=== PATIENT | female | born 1975 | race Caucasian/White ===

== ENCOUNTER 2016-05-17 16:45 | Emergency (ER) | payer MEDICAID ==
[~2016-05-17] VITALS: Ht 170.2 cm; Wt 111.8 kg
[~2016-05-17 16:45] MED LIST: IBUP800T23 PO; LEVO.1 PO; LISI-585 PO; METF500T PO; OXCA300T PO; XANA1TAB2 PO; ZOFR8TAB4 SL
[2016-05-17 17:26] VITALS: BP 146/85; PULSE 96; RESP 16; TEMP 98.4; O2SAT 97
[2016-05-17] MEDS ORDERED: INSULIN HUMAN REGULAR 1,000 UNITS/10 ML VIAL SQ ONE (18:45)
[2016-05-17] MEDS ORDERED: SODIUM CHLOR 0.9% 1000 ML INJ 1,000 ML IV ONE (18:45)
--- NOTE | 2016-05-17 18:48 | PD ---
HPI Chief Complaint: Diabetic Time Seen by Provider: 18:37 Travel History International Travel<30 days: No Contact w/Intl Traveler<30days: No Traveled to known affect area: No History of Present Illness HPI This 41-year-old female says her sugars been elevated last couple months. She has some tingling in her hands and feet. She has some burning with urination and is concerned she might have a urinary tract infection. She has a history of diabetes. About a year ago she was taken off of insulin put on metformin 500 twice daily. She was well controlled without focal while. She does have a history of hypothyroidism and is on medication. She has seizures which she takes Trileptal. She is not aware of fever or chills. PFSH Past Medical History Arthritis: No Cardiovascular Problems: Yes (htn on meds) High Cholesterol: Yes Diabetes: Yes Patient Takes Glucophage: Yes Diminished Hearing: No Hypertension: Yes Neurologic: Yes (EPILEPSY) Respiratory: Yes (PNEUMONIA , LEGIONAIRES DISEASE) Integumentary: Yes (MRSA 2007) Immunizations Current: Yes Seizures: Yes Thyroid Disease: Yes Influenza Vaccination: No ?: Not LMP: states last month unknown date : 2 Para: 2 Miscarriage: 0 : 0 Ovarian Cysts: Yes Past Surgical History Abdominal Surgery: No Cardiac Surgery: No Ear Surgery: No Endocrine Surgery: No Eye Surgery: No Genitourinary Surgery: No Gynecologic Surgery: No Neurologic Surgery: No Oral Surgery: No Thoracic Surgery: No Other Surgery: Yes Social History Alcohol Use: Yes (OCC) Tobacco Use: No Substance Use: No Allergies-Medications (Allergen,Severity, Reaction): Coded Allergies: Codeine (Verified Allergy, Severe, ITCHING, 05/17/16) Tylenol #3 (Verified Allergy, Mild, ITCHY, 05/17/16) Reported Meds & Prescriptions Reported Meds & Active Scripts Active Reported Oxcarbazepine 300 Mg Tab 600 Mg PO BID Zestoretic (Lisinopril-Hctz) 10-12.5 Mg Tab Unknown Dose PO DAIYL Synthroid (Levothyroxine Sodium) 100 Mcg Tab 100 Mcg PO DAILY Metformin (Metformin HCl) 500 Mg Tab 500 Mg PO BIDPC With meals Xanax (Alprazolam) 1 Mg Tab 1 Mg PO BID PRN Review of Systems General / Constitutional: No: Fever, Chills Eyes: No: Diploplia HENT: No: Headaches, Sore Throat Cardiovascular: No: Chest Pain or Discomfort, Palpitations Respiratory: No: Cough, Shortness of Breath Gastrointestinal: No: Nausea, Vomiting Genitourinary: Positive: Frequency, Dysuria Musculoskeletal: No: Myalgias Skin: No Rash, No Itching Neurologic: Positive: Weakness Endocrine: No: Heat Intolerance Hematologic/Lymphatic: No: Easy Bruising Physical Exam Narrative GENERAL: Well-developed female SKIN: Warm and dry. HEAD: Atraumatic. Normocephalic. EYES: Pupils equal and round. No scleral icterus. No injection or drainage. ENT: No nasal bleeding or discharge. Mucous membranes pink and moist. NECK: Trachea midline. No JVD. CARDIOVASCULAR: Regular rate and rhythm. No murmur appreciated. RESPIRATORY: No accessory muscle use. Clear to auscultation. Breath sounds equal bilaterally. GASTROINTESTINAL: Abdomen soft, non-tender, nondistended. Hepatic and splenic margins not palpable. MUSCULOSKELETAL: No obvious deformities. No clubbing. No cyanosis. No edema. NEUROLOGICAL: Awake and alert. No obvious cranial nerve deficits. Motor grossly within normal limits. Normal speech. PSYCHIATRIC: Appropriate mood and affect; insight and judgment normal Data Data Last Documented VS Vital Signs Date Time Temp Pulse Resp B/P Pulse Ox O2 Delivery O2 Flow Rate FiO2 05/17/16 19:40 74 18 118/85 98 Room Air 05/17/16 17:26 98.4 Orders Complete Blood Count With Diff (05/17/16 18:42) Basic Metabolic Panel (Bmp) (05/17/16 18:42) Urinalysis - C+S If Indicated (05/17/16 18:42) Beta Hydroxybutyrate (Acetone) (05/17/16 18:42) Sodium Chlor 0.9% 1000 Ml Inj (Ns 1000 M (05/17/16 18:45) Insulin Human Regular Inj (Novolin R Inj (05/17/16 18:45) Thyroid Stimulating Hormone (05/17/16 18:44) Urine Culture (05/17/16 19:25) Labs Laboratory Tests Test 05/17/16 19:25 White Blood Count 8.5 TH/MM3 Red Blood Count 4.82 MIL/MM3 Hemoglobin 15.0 GM/DL Hematocrit 44.3 % Mean Corpuscular Volume 91.9 FL Mean Corpuscular Hemoglobin 31.2 PG Mean Corpuscular Hemoglobin 34.0 % Concent Red Cell Distribution Width 11.4 % Platelet Count 238 TH/MM3 Mean Platelet Volume 8.3 FL Neutrophils (%) (Auto) 63.1 % Lymphocytes (%) (Auto) 29.8 % Monocytes (%) (Auto) 5.0 % Eosinophils (%) (Auto) 1.5 % Basophils (%) (Auto) 0.6 % Neutrophils # (Auto) 5.4 TH/MM3 Lymphocytes # (Auto) 2.5 TH/MM3 Monocytes # (Auto) 0.4 TH/MM3 Eosinophils # (Auto) 0.1 TH/MM3 Basophils # (Auto) 0.1 TH/MM3 CBC Comment DIFF FINAL Differential Comment Urine Color STRAW Urine Turbidity CLEAR Urine pH 5.5 Urine Specific [place] 1.026 Urine Protein NEG mg/dL Urine Glucose (UA) 1000 OR GREATER mg/dL Urine Ketones NEG mg/dL Urine Occult Blood TRACE Urine Nitrite NEG Urine Bilirubin NEG Urine Leukocyte Esterase NEG Urine RBC 0-3 /hpf Urine WBC 3-5 /hpf Urine Squamous Epithelial 6-8 /hpf Cells Urine Bacteria MOD /hpf Microscopic Urinalysis Comment CULTURE INDICATED Sodium Level 136 MEQ/L Potassium Level 3.9 MEQ/L Chloride Level 100 MEQ/L Carbon Dioxide Level 25.6 MEQ/L Anion Gap 10 MEQ/L Blood Urea Nitrogen 9 MG/DL Creatinine 0.80 MG/DL Estimat Glomerular Filtration 79 ML/MIN Rate Random Glucose 295 MG/DL Calcium Level 9.3 MG/DL B-Hydroxybutyrate 0.13 MMOL/L [facility] Medical Decision Making Medical Screen Exam Complete: Yes Emergency Medical Condition: Yes Medical Record Reviewed: Yes Differential Diagnosis Differential includes uncontrolled diabetes, hyperglycemia, DKA Narrative Course Blood sugar is elevated at 296. Urine does not show infection. Her ketones are negative. Her Glucophage will be changed to 1000 twice daily Diagnosis Primary Impression: Hyperglycemia Scripts Metformin (Glucophage)1,000 Mg Tab1,000 Mg PO BIDPC #60 TAB Ref 0 With a meal Prov:Pablo Hernandez MD 05/17/16 Disposition: 01 DISCHARGE HOME Condition: Stable Pablo Hernandez MD May 17, 2016 18:48
[2016-05-17 19:40] VITALS: BP 118/85; PULSE 74; RESP 18; O2SAT 98
[2016-05-17 19:44] LABS: AUTOMATED NEUTROPHIL # 5.4 TH/MM3 (1.8-7.7); BASOPHIL # 0.1 TH/MM3 (0-0.2); BASOPHIL % 0.6 % (0.0-2.0); BLOOD, URINE TRACE (NEG); EOSINOPHIL # 0.1 TH/MM3 (0-0.4); EOSINOPHIL % 1.5 % (0.0-4.0); HEMATOCRIT 44.3 % (35.0-46.0); HEMO FLAGS DIFF FINAL; KETONE, URINE NEG (NEG); LYMPH % 29.8 % (9.0-44.0); LYMPHOCYTE # 2.5 TH/MM3 (1.0-4.8); MEAN CELL VOLUME 91.9 FL (80.0-100.0); MEAN CORPUSCULAR HEMOGLOBIN 31.2 PG (27.0-34.0); NEUT % 63.1 % (16.0-70.0); NITRITE,URINE NEG (NEG); PH, URINE 5.5 (5.0-8.5); PLATELET COUNT 238 TH/MM3 (150-450); RED BLOOD COUNT 4.82 MIL/MM3 (4.00-5.30); RED CELL DISTRIBUTION WIDTH 11.4 % (11.6-17.2); WHITE BLOOD COUNT 8.5 TH/MM3 (4.0-11.0)
[2016-05-17 19:46] LABS: GLUCOSE,URINE 1000 OR GREATER mg/dL (NEG)
[2016-05-17 19:56] LABS: POTASSIUM 3.9 MEQ/L (3.5-5.1); RBC, URINE 0-3 /hpf (0-3); URINE COLOR STRAW (YELLW/STRAW)
[2016-05-17 19:57] LABS: BACTERIA, URINE MOD /hpf; COMMENT (UR) CULTURE INDICATED; CULTURE IF INDICATED CULTURE INDICATED
[2016-05-17 19:59] LABS: BICARBONATE 25.6 MEQ/L (21.0-32.0)
[2016-05-17 20:04] LABS: BETA-HYDROXYBUTYRATE 0.13 MMOL/L (0.00-0.39)
[2016-05-17] MEDS ORDERED: GLUC1000 PO (20:11)
[2016-05-17 20:22] VITALS: BP 121/80; PULSE 74; RESP 18; O2SAT 98
== END 2016-05-17 20:37 | disposition home or self-care (01) ==
LOC: PHED 16:45
DX: E11.65 Type 2 diabetes mellitus with hyperglycemia (principal); R30.0 Dysuria; E03.9 Hypothyroidism, unspecified; I10 Essential (primary) hypertension; E78.00 Pure hypercholesterolemia, unspecified; R82.90 Unspecified abnormal findings in urine
CPT/HCPCS: 80048; 81001; 82010; 84443; 85025; 87086; 96372; 96374; 99284; J1815; J7030

== ENCOUNTER 2016-05-29 15:49 | Inpatient (IN) | payer MEDICAID ==
[~2016-05-29 15:49] MED LIST changes: +GLUC1000 PO; -IBUP800T23 PO; -ZOFR8TAB4 SL
[2016-05-29 15:51] VITALS: BP 128/83; PULSE 94; RESP 20; TEMP 97.4; O2SAT 96
--- NOTE | 2016-05-29 17:28 | PD ---
HPI Chief Complaint: Seizure Time Seen by Provider: 17:20 Travel History International Travel<30 days: No Contact w/Intl Traveler<30days: No Traveled to known affect area: No History of Present Illness HPI 41-year-old female with history of seizure disorder presents for evaluation of breakthrough seizures. The patient reports that yesterday she had 3 grand mal seizures. 2 of them were witnessed by the patient's father who is at bedside. He reports that it lasted between 3 and 5 minutes and there is a postictal period afterwards. The patient reports that in the past she was on Dilantin for seizures and this was switched to Keppra. She was only on Keppra for a few weeks and this was switched to Trileptal 200MG bid which she has been on for the past few months and has been doing well on Trileptal and so yesterday when she had 3 breakthrough seizures. She has been using her medication as prescribed however she has run out as of this morning. She reports that her neurologist's office refilled her previous Keppra prescription and she took one dose of Keppra this morning but yesterday she struck her Trileptal as prescribed. She called her neurologist's office today and was advised to come here for further evaluation. Her neurologist is Dr. Bush. She is also complaining of hyperglycemia. She has a history of type 2 diabetes on metformin and she reports over the past few weeks her blood sugar has been running higher in the high 300 range. She does not currently have a primary care physician. No other complaints. PFSH Past Medical History Arthritis: No Cardiovascular Problems: Yes (htn on meds) High Cholesterol: Yes Diabetes: Yes Diminished Hearing: No Hypertension: Yes Neurologic: Yes (EPILEPSY) Respiratory: Yes (PNEUMONIA , LEGIONAIRES DISEASE) Integumentary: Yes (MRSA 2007) Immunizations Current: Yes Seizures: Yes Thyroid Disease: Yes : 2 Para: 2 Miscarriage: 0 : 0 Ovarian Cysts: Yes Past Surgical History Abdominal Surgery: No Cardiac Surgery: No Ear Surgery: No Endocrine Surgery: No Eye Surgery: No Genitourinary Surgery: No Gynecologic Surgery: No Neurologic Surgery: No Oral Surgery: No Thoracic Surgery: No Other Surgery: Yes Social History Alcohol Use: Yes (OCC) Tobacco Use: No Substance Use: No Allergies-Medications (Allergen,Severity, Reaction): Coded Allergies: Codeine (Verified Allergy, Severe, ITCHING, 05/29/16) Tylenol #3 (Verified Allergy, Mild, ITCHY, 05/29/16) Reported Meds & Prescriptions Reported Meds & Active Scripts Active Reported Oxcarbazepine 300 Mg Tab 600 Mg PO BID Zestoretic (Lisinopril-Hctz) 10-12.5 Mg Tab Unknown Dose PO DAIYL Synthroid (Levothyroxine Sodium) 100 Mcg Tab 100 Mcg PO DAILY Metformin (Metformin HCl) 500 Mg Tab 500 Mg PO BIDPC With meals Xanax (Alprazolam) 1 Mg Tab 1 Mg PO BID PRN Review of Systems Except as stated in HPI: all other systems reviewed are Neg Physical Exam Narrative GENERAL: Well-developed well-nourished female in no acute distress SKIN: Warm and dry. HEAD: Atraumatic. Normocephalic. EYES: Pupils equal and round. No scleral icterus. No injection or drainage. ENT: No nasal bleeding or discharge. Mucous membranes pink and moist. NECK: Trachea midline. No JVD. CARDIOVASCULAR: Regular rate and rhythm. No murmur appreciated. RESPIRATORY: No accessory muscle use. Clear to auscultation. Breath sounds equal bilaterally. GASTROINTESTINAL: Abdomen soft, non-tender, nondistended. Hepatic and splenic margins not palpable. MUSCULOSKELETAL: No obvious deformities. No edema NEUROLOGICAL: Awake and alert. No obvious cranial nerve deficits. Motor grossly within normal limits. Normal speech. PSYCHIATRIC: Appropriate mood and affect; insight and judgment normal. Data Data Last Documented VS Vital Signs Date Time Temp Pulse Resp B/P Pulse Ox O2 Delivery O2 Flow Rate FiO2 05/29/16 18:50 83 20 122/76 94 Room Air 05/29/16 15:51 97.4 Orders Complete Blood Count With Diff (05/29/16 17:21) Basic Metabolic Panel (Bmp) (05/29/16 17:21) Drug Screen, Random Urine (05/29/16 17:21) Urinalysis - C+S If Indicated (05/29/16 17:21) Ed Urine Pregnancytest Poc (05/29/16 17:21) Sodium Chlor 0.9% 1000 Ml Inj (Ns 1000 M (05/29/16 18:45) Oxcarbazepine (Trileptal) (05/29/16 19:00) ^ Seizure Precautions (05/29/16 18:49) Admit Order (Ed Use Only) (05/29/16 18:49) Labs Laboratory Tests Test 05/29/16 05/29/16 17:32 17:35 Urine Color YELLOW Urine Turbidity HAZY Urine pH 5.5 Urine Specific [place] 1.024 Urine Protein TRACE mg/dL Urine Glucose (UA) 70 mg/dL Urine Ketones 10 mg/dL Urine Occult Blood SMALL Urine Nitrite NEG Urine Bilirubin NEG Urine Urobilinogen LESS THAN 2.0 MG/DL Urine Leukocyte Esterase NEG Urine RBC LESS THAN 1 /hpf Urine WBC 1 /hpf Urine Squamous Epithelial 5 /hpf Cells Urine Bacteria RARE /hpf Urine Mucus FEW /lpf Microscopic Urinalysis Comment CULT NOT INDICATED White Blood Count 8.2 TH/MM3 Red Blood Count 4.41 MIL/MM3 Hemoglobin 14.2 GM/DL Hematocrit 40.4 % Mean Corpuscular Volume 91.6 FL Mean Corpuscular Hemoglobin 32.2 PG Mean Corpuscular Hemoglobin 35.2 % Concent Red Cell Distribution Width 12.3 % Platelet Count 261 TH/MM3 Mean Platelet Volume 8.4 FL Neutrophils (%) (Auto) 64.0 % Lymphocytes (%) (Auto) 28.3 % Monocytes (%) (Auto) 6.5 % Eosinophils (%) (Auto) 0.7 % Basophils (%) (Auto) 0.5 % Neutrophils # (Auto) 5.3 TH/MM3 Lymphocytes # (Auto) 2.3 TH/MM3 Monocytes # (Auto) 0.5 TH/MM3 Eosinophils # (Auto) 0.1 TH/MM3 Basophils # (Auto) 0.0 TH/MM3 CBC Comment DIFF FINAL Differential Comment Sodium Level 137 MEQ/L Potassium Level 3.8 MEQ/L Chloride Level 102 MEQ/L Carbon Dioxide Level 25.2 MEQ/L Anion Gap 10 MEQ/L Blood Urea Nitrogen 9 MG/DL Creatinine 0.78 MG/DL Estimat Glomerular Filtration 82 ML/MIN Rate Random Glucose 258 MG/DL Calcium Level 8.7 MG/DL [facility] Medical Decision Making Medical Screen Exam Complete: Yes Emergency Medical Condition: Yes Medical Record Reviewed: Yes Differential Diagnosis Breakthrough seizure, syncope, medication noncompliance, mass, electrolyte abnormality Narrative Course This is a 41-year-old female and Trileptal and Xanax who presents with 3 breakthrough seizures in the past 24 hours. She has also had hyperglycemia over the past few weeks despite using her metformin as prescribed. The patient was initially seen in triage were basic lab work has been ordered. The patient will be moved to medical bed when one becomes available. Scar Brothers May 29, 2016 17:28
[2016-05-29 17:58] LABS: AUTOMATED NEUTROPHIL # 5.3 TH/MM3 (1.8-7.7); BASOPHIL % 0.5 % (0.0-2.0); EOSINOPHIL # 0.1 TH/MM3 (0-0.4); EOSINOPHIL % 0.7 % (0.0-4.0); HEMATOCRIT 40.4 % (35.0-46.0); HEMO FLAGS DIFF FINAL; LYMPH % 28.3 % (9.0-44.0); LYMPHOCYTE # 2.3 TH/MM3 (1.0-4.8); MEAN CELL VOLUME 91.6 FL (80.0-100.0); MEAN CORPUSCULAR HEMOGLOBIN 32.2 PG (27.0-34.0); MEAN CORPUSCULAR HGB CONC 35.2 % (32.0-36.0); MONO % 6.5 % (0.0-8.0); PLATELET COUNT 261 TH/MM3 (150-450); RED BLOOD COUNT 4.41 MIL/MM3 (4.00-5.30); RED CELL DISTRIBUTION WIDTH 12.3 % (11.6-17.2); WHITE BLOOD COUNT 8.2 TH/MM3 (4.0-11.0)
[2016-05-29 18:08] LABS: BACTERIA, URINE RARE /hpf; BLOOD, URINE SMALL (NEG); COMMENT (UR) CULT NOT INDICATED; CULTURE IF INDICATED CULT NOT INDICATED; GLUCOSE,URINE 70 mg/dL (NEG); KETONE, URINE 10 mg/dL (NEG); MUCUS URINE FEW /lpf (OCC); NITRITE,URINE NEG (NEG); PH, URINE 5.5 (5.0-8.5); SQUAMOUS EPITHELIAL CELL URINE 5 /hpf (0-5); URINE COLOR YELLOW (YELLW/STRAW)
[2016-05-29 18:24] LABS: BICARBONATE 25.2 MEQ/L (21.0-32.0); POTASSIUM 3.8 MEQ/L (3.5-5.1)
[2016-05-29] MEDS ORDERED: SODIUM CHLOR 0.9% 1000 ML INJ 1,000 ML IV ONE (18:45)
--- NOTE | 2016-05-29 18:46 | PD ---
HPI Chief Complaint: Seizure Time Seen by Provider: 18:37 Travel History International Travel<30 days: No Contact w/Intl Traveler<30days: No Traveled to known affect area: No History of Present Illness HPI 41-year-old female to the emergency room with history of 3 seizures yesterday. She last took her seizure medication which is Trileptal yesterday morning. She has a tongue bite and tongue swelling from the seizures. Her father got her seizure medication filled today but it was Keppra which patient says she hasn't taken in a while. She spoke with her neurologist Dr. Bush's nurse who asked the patient to come to the emergency room. She is also a diabetic and says that her sugars have been running high. She was seen by the provider in triage and workup was initiated. By the time I saw her blood test results were back. Her blood sugar level was 258. She is awake and answering questions appropriately. PFSH Past Medical History Narrative Medical List of her past medical, surgical, social and family history was reviewed from the nursing note. Arthritis: No Cardiovascular Problems: Yes (htn on meds) High Cholesterol: Yes Diabetes: Yes Diminished Hearing: No Hypertension: Yes Neurologic: Yes (EPILEPSY) Respiratory: Yes (PNEUMONIA , LEGIONAIRES DISEASE) Integumentary: Yes (MRSA 2007) Immunizations Current: Yes Seizures: Yes Thyroid Disease: Yes : 2 Para: 2 Miscarriage: 0 : 0 Ovarian Cysts: Yes Past Surgical History Abdominal Surgery: No Cardiac Surgery: No Ear Surgery: No Endocrine Surgery: No Eye Surgery: No Genitourinary Surgery: No Gynecologic Surgery: No Neurologic Surgery: No Oral Surgery: No Thoracic Surgery: No Other Surgery: Yes Social History Alcohol Use: Yes (OCC) Tobacco Use: No Substance Use: No Allergies-Medications (Allergen,Severity, Reaction): Coded Allergies: Codeine (Verified Allergy, Severe, ITCHING, 05/29/16) Tylenol #3 (Verified Allergy, Mild, ITCHY, 05/29/16) Comments List of her allergies reviewed from the nursing note. Reported Meds & Prescriptions Reported Meds & Active Scripts Active Reported Oxcarbazepine 300 Mg Tab 600 Mg PO BID Zestoretic (Lisinopril-Hctz) 10-12.5 Mg Tab Unknown Dose PO DAIYL Synthroid (Levothyroxine Sodium) 100 Mcg Tab 100 Mcg PO DAILY Xanax (Alprazolam) 1 Mg Tab 1 Mg PO BID PRN Narrative Medication List of her home medications reviewed from the nursing note. Review of Systems Except as stated in HPI: all other systems reviewed are Neg Physical Exam Narrative GENERAL: Awake, alert, obese, no obvious distress SKIN: Warm and dry. HEAD: Atraumatic. Normocephalic. EYES: Pupils equal and round. No scleral icterus. No injection or drainage. ENT: No nasal bleeding or discharge. Mucous membranes pink and moist. Left half of her Tylenol is swollen, contusion and mucosal laceration with no active bleeding NECK: Trachea midline. No JVD. CARDIOVASCULAR: Regular rate and rhythm. No murmur appreciated. RESPIRATORY: No accessory muscle use. Clear to auscultation. Breath sounds equal bilaterally. GASTROINTESTINAL: Abdomen soft, non-tender, nondistended. Hepatic and splenic margins not palpable. MUSCULOSKELETAL: No obvious deformities. No clubbing. No cyanosis. No edema. NEUROLOGICAL: Awake and alert. No obvious cranial nerve deficits. Motor grossly within normal limits. Normal speech. PSYCHIATRIC: Appropriate mood and affect; insight and judgment normal. Data Data Last Documented VS Orders Complete Blood Count With Diff (05/29/16 17:21) Basic Metabolic Panel (Bmp) (05/29/16 17:21) Drug Screen, Random Urine (05/29/16 17:21) Urinalysis - C+S If Indicated (05/29/16 17:21) Ed Urine Pregnancytest Poc (05/29/16 17:21) Sodium Chlor 0.9% 1000 Ml Inj (Ns 1000 M (05/29/16 18:45) Oxcarbazepine (Trileptal) (05/29/16 19:00) ^ Seizure Precautions (05/29/16 18:49) Admit Order (Ed Use Only) (05/29/16 18:49) Labs MDM Medical Decision Making Medical Screen Exam Complete: Yes Emergency Medical Condition: Yes Medical Record Reviewed: Yes Differential Diagnosis Uncontrolled seizure, breakthrough seizure Narrative Course 6:45 PM I spoke with patient's neurologist Dr. Bush who recommended to go ahead and give the patient 400 mg of by mouth Trileptal. He recommended to admit the patient for observation and he'll consult her to get better control of her seizure could be done. Patient does not have a primary care currently since nobody would accept her Medicaid. She requires a primary care for better management of her diabetes along with refill prescriptions. Hopefully this can be achieved during this admission. Awaiting for the hospitalist to call back. Procedures EKG Prior to Arrival: No Physician Communication Physician Communication Dr. Bush Diagnosis Primary Impression: Uncontrolled seizures Qualified Code: R56.9 - Convulsions, unspecified convulsion type Admitting Information Admitting Physician Requests: Observation Scripts Metformin 1,000 Mg Tab1,000 Mg PO BIDPC #60 TAB Ref 0 With meals Prov:Jessica Betancourt MD 05/30/16 Tabitha Thornton MD May 29, 2016 18:46 Urine Urobilinogen LESS THAN 2.0 MG/DL Urine Leukocyte Esterase NEG Urine RBC LESS THAN 1 /hpf Urine WBC 1 /hpf Urine Squamous Epithelial 5 /hpf Cells Urine Bacteria RARE /hpf Urine Mucus FEW /lpf Microscopic Urinalysis Comment CULT NOT INDICATED White Blood Count 8.2 TH/MM3 Red Blood Count 4.41 MIL/MM3 Hemoglobin 14.2 GM/DL Hematocrit 40.4 % Mean Corpuscular Volume 91.6 FL Mean Corpuscular Hemoglobin 32.2 PG Mean Corpuscular Hemoglobin 35.2 % Concent Red Cell Distribution Width 12.3 % Platelet Count 261 TH/MM3 Mean Platelet Volume 8.4 FL Neutrophils (%) (Auto) 64.0 % Lymphocytes (%) (Auto) 28.3 % Monocytes (%) (Auto) 6.5 % Eosinophils (%) (Auto) 0.7 % Basophils (%) (Auto) 0.5 % Neutrophils # (Auto) 5.3 TH/MM3 Lymphocytes # (Auto) 2.3 TH/MM3 Monocytes # (Auto) 0.5 TH/MM3 Eosinophils # (Auto) 0.1 TH/MM3 Basophils # (Auto) 0.0 TH/MM3 CBC Comment DIFF FINAL Differential Comment Sodium Level 137 MEQ/L Potassium Level 3.8 MEQ/L Chloride Level 102 MEQ/L Carbon Dioxide Level 25.2 MEQ/L Anion Gap 10 MEQ/L Blood Urea Nitrogen 9 MG/DL Creatinine 0.78 MG/DL Estimat Glomerular Filtration 82 ML/MIN Rate Random Glucose 258 MG/DL Calcium Level 8.7 MG/DL MDM Medical Decision Making Medical Screen Exam Complete: Yes Emergency Medical Condition: Yes Medical Record Reviewed: Yes Differential Diagnosis Uncontrolled seizure, breakthrough seizure Narrative Course 6:45 PM I spoke with patient's neurologist Dr. Bush who recommended to go ahead and give the patient 400 mg of by mouth Trileptal. He recommended to admit the patient for observation and he'll consult her so that medication to get better control of her seizure could be done. Patient does not have a primary care currently since nobody would accept her Medicaid. She requires a primary care for better management of her diabetes along with refill prescriptions. Hopefully this can be achieved during this admission. Awaiting for the hospitalist to call back. Procedures EKG Prior to Arrival: No Physician Communication Physician Communication Dr. Bush Diagnosis Primary Impression: Uncontrolled seizures Qualified Code: R56.9 - Convulsions, unspecified convulsion type Admitting Information Admitting Physician Requests: Observation Tabitha Thornton MD May 29, 2016 18:46
[2016-05-29 18:50] VITALS: BP 122/76; PULSE 83; RESP 20; O2SAT 94
[2016-05-29] MEDS ORDERED: SODIUM CHLORIDE 0.9% FLUSH 10 ML FLUSH IV FLUSH PRN (19:00)
[2016-05-29] MEDS ORDERED: OXcarbazepine 600 MG TAB PO ONE (19:00)
[2016-05-29] MEDS ORDERED: ONDANSETRON HCL 4 MG/2 ML VIAL IVP PRN (19:00)
[2016-05-29] MEDS ORDERED: MAGNESIUM HYDROXIDE SUSP 30 ML CUP PO PRN (19:00)
[2016-05-29] MEDS ORDERED: NALOXONE HCL 0.4 MG/ML AMP IV PRN (19:00)
[2016-05-29] MEDS ORDERED: ACETAMINOPHEN 325 MG TAB PO PRN (19:00)
[2016-05-29 19:01] VITALS: BP 125/81; PULSE 77; RESP 20; O2SAT 96
[2016-05-29] MEDS ORDERED: PILL SPLITTER OTHER PRN (19:15)
[2016-05-29] MEDS ORDERED: DEXTROSE 50% IN WATER 50 ML VIAL(D50) IV PUSH PRN (20:30)
[2016-05-29] MEDS ORDERED: GLUCAGON 1 MG/ML VIAL OTHER PRN (20:30)
[2016-05-29] MEDS: SODIUM CHLORIDE 0.9% FLUSH 10 ML FLUSH IV FLUSH SCH (21:25)
[2016-05-29] MEDS: INSULIN ASPART SUPPLEMENTAL SCALE SQ SCH (21:26)
[2016-05-29] MEDS: SODIUM CHLOR 0.9% 1000 ML INJ 1,000 ML IV SCH (21:27)
--- NOTE | 2016-05-29 21:29 | HHI.HP ---
[facility] No Primary Care Physician Admission Diagnosis uncontrolled seizure Diagnoses: (1) Uncontrolled seizures (2) Hyperglycemia (3) Type 2 diabetes mellitus (4) Diarrhea Chief Complaint: Patient had three seizures yesterday Travel History International Travel<30 Days: No Contact w/Intl Traveler <30 Da: No Traveled to Known Affected Are: No History of Present Illness Ms. Loyd is a 41 year-old female with a history of epilepsy, legionella pneumonia hospitalized 8 days in 2003, hypertension, diabetes, and hypothyroidism who presents to the emergency room on 05/29/2016 for evaluation of breakthrough seizures. She was switched from Dilantin to Keppra. She was then switched from the Keppra to Trileptal. She has been on Trileptal for a couple of months. Trileptal 200 mg in a.m. and 200 mg in p.m. Has been working well until yesterday. The patient is seen in the ER. She reports having three witnessed tonic-clonic seizures yesterday. Has no recollection of them though remembers feeling the first seizure's aura but states it came on too fast for her to take PRN Xanax which is what she would normally do when she feels a seizure coming. She denies daily Xanax use. She reports compliance with medications. Recently, her sleep schedule has been disrupted because her started working nights. She denies any recent dietary changes. She is also complaining of high blood sugars - 300 to 500s over the past week. Denies fever but reports abdominal pain and foul smelling diarrhea x 1 week. She denies nausea or vomiting, black or red stool. She says she had a urinary tract infection about 2 months ago around the beginning of March and was treated with antibiotics. She denies any current dysuria or hematuria. She denies pain with urination. She has been unable to find a primary care physician who accepts her insurance. She denies taking any prednisone. She does take thyroid medications and hypertension medications. She denies any sinus pain, ear pain, sore throat, cold symptoms. She denies coronary artery disease, congestive heart failure, irregular heart rhythms, breathing problems, liver problems, or cancers. . Review of Systems Except as stated in HPI: all other systems reviewed are Neg Past Family Social History Past Medical History Epilepsy Legionella pneumonia hospitalized 8 days in 11/2003 Hypertension Type 2 diabetes mellitus Hypothyroidism . Past Surgical History None . Reported Medications Reported Meds & Active Scripts Active Reported Oxcarbazepine 300 Mg Tab 600 Mg PO BID Zestoretic (Lisinopril-Hctz) 10-12.5 Mg Tab Unknown Dose PO DAIYL Synthroid (Levothyroxine Sodium) 100 Mcg Tab 100 Mcg PO DAILY Metformin (Metformin HCl) 500 Mg Tab 500 Mg PO BIDPC With meals Xanax (Alprazolam) 1 Mg Tab 1 Mg PO BID PRN . Allergies: Coded Allergies: Codeine (Verified Allergy, Severe, ITCHING, 05/29/16) Tylenol #3 (Verified Allergy, Mild, ITCHY, 05/29/16) Active Ordered Medications Current Medications Sodium Chloride (NS 1000 ml Inj) 1,000 ml @ 999 mls/hr BOLUS ONCE IV Last administered on 05/29/16 18:47; Start 05/29/16 at 18:45; Stop 05/29/16 at 19:45 ; Status DC Oxcarbazepine 400 mg 400 mg ONCE ONCE PO Last administered on 05/29/16 19:48 ; Start 05/29/16 at 19:00; Stop 05/29/16 at 19:01; Status DC Sodium Chloride (NS 1000 ml Inj) 1,000 ml @ 100 mls/hr Q10H IV ; Start at 19:00 Sodium Chloride (NS Flush) 2 ml UNSCH PRN IV FLUSH FLUSH AFTER USING IV ACCESS ; Start 05/29/16 at 19:00 Sodium Chloride (NS Flush) 2 ml BID IV FLUSH ; Start 05/29/16 at 21:00 Acetaminophen (Tylenol) 650 mg Q4H PRN PO Fever, headache, pain 1-4; Start at 19:00 Ondansetron HCl (Zofran Inj) 4 mg Q6H PRN IVP NAUSEA OR VOMITING; Start at 19:00 Magnesium Hydroxide (Milk Of Magnesia Liq) 30 ml Q12H PRN PO CONSTIPATION; Start 05/29/16 at 19:00 Temazepam (Restoril) 15 mg HS PRN PO INSOMNIA; Start 05/29/16 at 19:00 Naloxone HCl (Narcan Inj) 0.4 mg UNSCH PRN IV SEE LABEL COMMENTS; Start at 19:00 Miscellaneous (Pill Splitter) 1 ea UNSCH PRN OTHER SEE LABEL COMMENTS; Start at 19:15 Dextrose (D50w (Vial) Inj) 25 ml UNSCH PRN IV PUSH HYPOGLYCEMIA-SEE COMMENTS; Start 05/29/16 at 20:30 Glucagon (Glucagon Inj) 1 mg UNSCH PRN OTHER HYPOGLYCEMIA-SEE COMMENTS; Start 05/29/16 at 20:30 Insulin Aspart (NovoLOG SUPPLEMENTAL SCALE) 1 ACHS SLIDING SCALE SQ ; Start at 21:00 . Family History Cancer, heart disease Mother with multiple myeloma Nephew with leukemia . Social History Tobacco: Denies Alcohol: Denies Illicit Drugs: Occasional marijuana . Physical Exam Vital Signs Vital Signs Date Time Temp Pulse Resp B/P Pulse Ox O2 Delivery O2 Flow Rate FiO2 05/29/16 19:01 77 20 125/81 96 Room Air 05/29/16 18:50 83 20 122/76 94 Room Air 05/29/16 15:51 97.4 94 20 128/83 96 Room Air Physical Exam GENERAL: This is an obese female patient, in no apparent distress. SKIN: No rashes, ecchymoses or lesions. Cool and dry. HEAD: Atraumatic. Normocephalic. EYES: No scleral icterus. No injection or drainage. ENT: Nose without bleeding, purulent drainage. NECK: Trachea midline. No JVD or lymphadenopathy. CARDIOVASCULAR: Regular rate and rhythm without murmurs, gallops, or rubs. RESPIRATORY: Clear to auscultation. Breath sounds equal bilaterally. No wheezes , rales, or rhonchi. GASTROINTESTINAL: Abdomen soft, non-tender, nondistended. No guarding. MUSCULOSKELETAL: Extremities without clubbing, cyanosis, or edema. No calf tenderness. NEUROLOGICAL: Awake and alert. Motor and sensory grossly within normal limits. Normal speech. Reports some difficulty with memory. . Laboratory Laboratory Tests Test 05/29/16 05/29/16 17:32 17:35 Urine Color YELLOW Urine Turbidity HAZY Urine pH 5.5 Urine Specific [place] 1.024 Urine Protein TRACE Urine Glucose (UA) 70 Urine Ketones 10 Urine Occult Blood SMALL Urine Nitrite NEG Urine Bilirubin NEG Urine Urobilinogen LESS THAN 2.0 Urine Leukocyte Esterase NEG Urine RBC LESS THAN 1 Urine WBC 1 Urine Squamous Epithelial 5 Cells Urine Bacteria RARE Urine Mucus FEW Microscopic Urinalysis Comment CULT NOT INDICATED White Blood Count 8.2 Red Blood Count 4.41 Hemoglobin 14.2 Hematocrit 40.4 Mean Corpuscular Volume 91.6 Mean Corpuscular Hemoglobin 32.2 Mean Corpuscular Hemoglobin 35.2 Concent Red Cell Distribution Width 12.3 Platelet Count 261 Mean Platelet Volume 8.4 Neutrophils (%) (Auto) 64.0 Lymphocytes (%) (Auto) 28.3 Monocytes (%) (Auto) 6.5 Eosinophils (%) (Auto) 0.7 Basophils (%) (Auto) 0.5 Neutrophils # (Auto) 5.3 Lymphocytes # (Auto) 2.3 Monocytes # (Auto) 0.5 Eosinophils # (Auto) 0.1 Basophils # (Auto) 0.0 CBC Comment DIFF FINAL Differential Comment Sodium Level 137 Potassium Level 3.8 Chloride Level 102 Carbon Dioxide Level 25.2 Anion Gap 10 Blood Urea Nitrogen 9 Creatinine 0.78 Estimat Glomerular Filtration 82 Rate Random Glucose 258 Calcium Level 8.7 Result Diagram: 05/29/16173405/29/161734 Assessment and Plan Problem List: (1) Uncontrolled seizures ICD Code: R56.9 Status: Acute (2) Type 2 diabetes mellitus ICD Code: E11.9 Status: Chronic (3) Hyperglycemia ICD Code: R73.9 Status: Acute (4) Diarrhea ICD Code: R19.7 Status: Acute Assessment and Plan Uncontrolled seizures/breakthrough seizure activity - Neurology consultation - Dr. Bush's assistance appreciated. - Given Trileptal 400 mg by mouth in the ER once per neurology recommendation - Neuro checks every 4 hours, vital signs every 4 hours - Ativan 1 mg IV q15 minutes PRN seizures Type 2 diabetes mellitus Hyperglycemia - Will need to establish with primary care physician - Consult case management - Initial blood glucose 258 - Hold metformin for now - Accu-Cheks before meals and at bedtime with low-dose NovoLog sliding scale coverage - Hypoglycemia protocol - Monitor blood glucose trends and adjust treatments as needed - IV fluid hydration with normal saline at 100 cc per hour - Check HgA1C Diarrhea - r/o c. diff - check stool culture DVT prophylaxis - SCDs Written by Sara Reinoso, acting as scribe for Dr. Bravo on 05/29/16 at 21:28. This note was transcribed by scribe [Sara Reinoso]. I, Dr. Demetria Bravo personally performed the history, physical exam, and medical decision making; and confirmed the accuracy of the information in the transcribed note. Authenticated by Dr. Demetria Bravo on 05/29/16 at 21:28. . Discussed Condition With ER physician, RN, and patient . Problem Qualifiers (1) Uncontrolled seizures: Qualified Code: R56.9 - Convulsions, unspecified convulsion type (2) Type 2 diabetes mellitus: Qualified Code: E11.65 - Type 2 diabetes mellitus with hyperglycemia, without long-term current use of insulin Sara Reinoso May 29, 2016 21:29 Demetria Bravo MD July 08, 2016 06:57
[2016-05-29 21:44] VITALS: BP 125/67
[2016-05-29] MEDS ORDERED: LORazepam 2 MG/ML VIAL IV PUSH PRN (22:00)
[2016-05-30 00:07] LABS: AMPHETAMINE, URINE NEG (NEG); BARBITURATES, URINE NEG (NEG); COCAINE, URINE NEG (NEG)
[2016-05-30 00:39] VITALS: BP 113/65; PULSE 84; RESP 18; TEMP 97.6; O2SAT 100
[2016-05-30] MEDS: TEMAZEPAM 15 MG CAP PO PRN ×2 (00:49→21:05)
[2016-05-30 04:00] VITALS: BP 116/64; PULSE 84; RESP 18; TEMP 97.8; O2SAT 100
[2016-05-30] MEDS: SODIUM CHLOR 0.9% 1000 ML INJ 1,000 ML IV SCH ×2 (05:00→16:59)
[2016-05-30] MEDS: INSULIN ASPART SUPPLEMENTAL SCALE SQ SCH ×4 (07:00→21:05)
[2016-05-30 08:43] VITALS: BP 119/78; PULSE 68; RESP 20; TEMP 97.4; O2SAT 97
[2016-05-30] MEDS: SODIUM CHLORIDE 0.9% FLUSH 10 ML FLUSH IV FLUSH SCH ×2 (09:00→21:06)
[2016-05-30 09:06] LABS: AUTOMATED NEUTROPHIL # 3.4 TH/MM3 (1.8-7.7); BASOPHIL # 0.1 TH/MM3 (0-0.2); BASOPHIL % 0.8 % (0.0-2.0); EOSINOPHIL # 0.2 TH/MM3 (0-0.4); HEMATOCRIT 39.6 % (35.0-46.0); HEMO FLAGS DIFF FINAL; LYMPHOCYTE # 3.6 TH/MM3 (1.0-4.8); MEAN CELL VOLUME 91.8 FL (80.0-100.0); MEAN CORPUSCULAR HEMOGLOBIN 31.9 PG (27.0-34.0); MEAN CORPUSCULAR HGB CONC 34.8 % (32.0-36.0); MONO % 5.8 % (0.0-8.0); NEUT % 44.4 % (16.0-70.0); PLATELET COUNT 257 TH/MM3 (150-450); RED BLOOD COUNT 4.32 MIL/MM3 (4.00-5.30); RED CELL DISTRIBUTION WIDTH 12.4 % (11.6-17.2); WHITE BLOOD COUNT 7.6 TH/MM3 (4.0-11.0)
[2016-05-30 09:34] LABS: ANION GAP 7 MEQ/L (5-15); BICARBONATE 27.9 MEQ/L (21.0-32.0); BLOOD UREA NITROGEN 8 MG/DL (7-18); CHLORIDE 104 MEQ/L (98-107); GLOMERULAR FILTRATION RATE 101 ML/MIN (>89); POTASSIUM 3.2 MEQ/L (3.5-5.1); SODIUM (NA) 139 MEQ/L (136-145)
--- NOTE | 2016-05-30 11:12 | HHI.PR ---
Subjective Remarks Patient in bed. Says she has some muscle tenderness and feels tired. Sayus no more seizure activity since yesterday. No motor/sensory deficit. No n/v/d/c. Objective Vitals Vital Signs Date Time Temp Pulse Resp B/P Pulse Ox O2 Delivery O2 Flow Rate FiO2 05/30/16 08:43 97.4 68 20 119/78 97 05/30/16 04:00 97.8 84 18 116/64 100 05/30/16 00:39 97.6 84 18 113/65 100 05/29/16 21:44 78 18 125/67 97 05/29/16 19:01 77 20 125/81 96 Room Air 05/29/16 18:50 83 20 122/76 94 Room Air 05/29/16 15:51 97.4 94 20 128/83 96 Room Air Result Diagram: 05/30/1683205/30/16832 Objective Remarks GENERAL: This is an obese female patient, in no apparent distress. SKIN: No rashes, ecchymoses or lesions. Cool and dry. HEAD: Atraumatic. Normocephalic. EYES: No scleral icterus. No injection or drainage. ENT: Nose without bleeding, purulent drainage. NECK: Trachea midline. No JVD or lymphadenopathy. CARDIOVASCULAR: Regular rate and rhythm without murmurs, gallops, or rubs. RESPIRATORY: Clear to auscultation. Breath sounds equal bilaterally. No wheezes , rales, or rhonchi. GASTROINTESTINAL: Abdomen soft, non-tender, nondistended. No guarding. MUSCULOSKELETAL: Extremities without clubbing, cyanosis, or edema. No calf tenderness. NEUROLOGICAL: Awake and alert. Motor and sensory grossly within normal limits. Normal speech. Reports some difficulty with memory. A/P Problem List: (1) Uncontrolled seizures ICD Code: R56.9 Status: Acute (2) Type 2 diabetes mellitus ICD Code: E11.9 Status: Chronic (3) Hyperglycemia ICD Code: R73.9 Status: Acute (4) Diarrhea ICD Code: R19.7 Status: Acute Assessment and Plan Uncontrolled seizures/breakthrough seizure activity Neurology consultation - Dr. Bush's, appreciate recommendations Received Trileptal 400 mg by mouth in the ER once per neurology recommendation Seen by neurology appreciate recommendations. recommends 600 mg trileptal bid. Cleared by neuro for DC Neuro checks every 4 hours, vital signs every 4 hours Ativan 1 mg IV q15 minutes PRN seizures Type 2 diabetes mellitus,uncontrolled, A1C 9.3 Hyperglycemia Will need to establish with primary care physician Consult case management Initial blood glucose 258 Hold metformin for now Accu-Cheks before meals and at bedtime with low-dose NovoLog sliding scale coverage Hypoglycemia protocol Monitor blood glucose trends and adjust treatments as needed IV fluid hydration with normal saline at 100 cc per hour HgA1C 9.3 Will increzase metformin at DC to 1000 mg po bid. Patient to follow up as OP with PcP and to consider insulin treatment Diarrhea. Resolved. r/o c. diff. Check stool culture , however patient did not have any diarrhea and samples not obtained. DVT prophylaxis - SCDs Discussed Condition With Patient, nurse Improved, cleared by neuro for DC Discharge Planning DC home in stable condition to follow up as OP with PCP and consultants Meds per med reconciliations Activity ad moises as tolerated. DO NOT DRIVE UNTIL CLEARED BY NEUROLOGY. Diet: Diabetic diet Problem Qualifiers (1) Uncontrolled seizures: Qualified Code: R56.9 - Convulsions, unspecified convulsion type (2) Type 2 diabetes mellitus: Qualified Code: E11.65 - Type 2 diabetes mellitus with hyperglycemia, without long-term current use of insulin Jessica Betancourt MD May 30, 2016 11:12
[2016-05-30] MEDS ORDERED: POTASSIUM CHLORIDE 10 MEQ CONTROLLED RELEASE TAB PO ONE (11:45)
[2016-05-30 12:23] VITALS: BP_SYST 113; BP_SYST 116; BP_DIAS 67; BP_DIAS 69; PULSE 67; PULSE 70; RESP 20; TEMP 97.2; TEMP 97.5; O2SAT 94; O2SAT 95
--- NOTE | 2016-05-30 13:06 | MB ---
cc: ANITA HUERTA M.D. DATE OF CONSULTATION 05/30/2016 REASON FOR CONSULTATION Seizure HISTORY OF PRESENT ILLNESS Ms. Loyd is a pleasant 41-year-old woman known to me from outpatient evaluation who has a long history of seizure disorder. She was taking Trileptal, she states 200 mg b.i.d., had three recurrent seizures on Friday. She was on her Trileptal at that time did not miss any doses. She ran out of the medications. She presented to the ER yesterday. Trileptal has been resumed. She has had no recurrent seizure activity. She tolerates the Trileptal well. In the past, she was on Dilantin which was switched to Keppra, but had breakthrough seizures and was therefore switched to Trileptal recently. PERSONAL HISTORY 1. History of hypertension. 2. Type 2 diabetes 3. Hypothyroidism 4. Seizures MEDICATIONS AT HOME 1. She is on Synthroid 100 mcg daily 2. Metformin 500 mg b.i.d. 3. Xanax as needed 4. Trileptal she states 200 mg b.i.d. SOCIAL HISTORY Denies alcohol use. She does take marijuana occasionally. Denies tobacco use. NEUROLOGIC EXAMINATION Her blood pressure is 113/69, pulse is 70, respirations are 20, temperature 97 degrees. Higher cortical functions are normal. Cranial nerves II-XII are normal in detail. Motor exam 5/5 strength of all groups. There is no drift. Reflexes are symmetric. LABORATORY DATA White count 7600, hemoglobin 13.8, hematocrit 39.6%, platelet count 257,000. Sodium is 137, potassium 3.8, chloride 102, CO2 25.2. The BUN is 9, creatinine 0.78, GFR is 82, glucose 258. Tox screen positive for cannabinoids. IMPRESSION Breakthrough seizures on Trileptal. RECOMMENDATIONS I would recommend raising the dose of Trileptal to 600 mg b.i.d. The patient is stable at the present time. She is stable to be discharged home. I told her no driving. She will follow with me in one week. MD DENICE Dickens/MICA /12:50 PM 12:58 PM
[2016-05-30] MEDS: OXcarbazepine 600 MG TAB PO SCH ×2 (13:52→21:05)
[2016-05-30 16:27] LABS: HEMOGLOBIN A1b 1.2 %; HEMOGLOBIN Ao 80.3 %; HEMOGLOBIN F 1.4 %; HEMOGLOBIN LA1C 2.2 %; HEMOGLOBIN P3 4.3 %
[2016-05-30 17:11] VITALS: BP 109/91; PULSE 93; RESP 20; TEMP 98.8; O2SAT 97
--- NOTE | 2016-05-30 18:42 | HHI.DCPOC ---
Discharge Care Plan Goals to Promote Your Health * To prevent worsening of your condition and complications * To maintain your health at the optimal level Directions to Meet Your Goals Take your medications as prescribed Follow your dietary instruction Follow activity as directed Keep your appointments as scheduled Take your immunizations and boosters as scheduled If your symptoms worsen call your PCP, if no PCP go to Urgent Care Center or Emergency Room Smoking is Dangerous to Your Health. Avoid second hand smoke Call the 24-hour hour crisis hotline for domestic abuse at Jessica Betancourt MD May 30, 2016 18:42
[2016-05-30] MEDS ORDERED: METF1000 PO (18:43)
[2016-05-30 20:00] VITALS: BP 125/82; PULSE 82; RESP 18; TEMP 98.4; O2SAT 96
[2016-05-31 00:10] LABS: C. DIFF EPI 027 PRESUMPTIVE NEGATIVE (NEGATIVE); C. DIFF TOXIN PCR NEGATIVE (NEGATIVE)
== END 2016-05-30 22:15 | disposition home or self-care (01) | DRG 101 ==
LOC: NEPE 15:49 → NEDA 18:51 → OBSVTOIN 18:54 → N05A 22:32
PROVIDERS: ADMIT Hospitalist; ATTEND Hospitalist
DX: G40.909 Epilepsy, unspecified, not intractable, without status epilepticus (principal); E11.65 Type 2 diabetes mellitus with hyperglycemia; I10 Essential (primary) hypertension; E03.9 Hypothyroidism, unspecified; R19.7 Diarrhea, unspecified; E78.00 Pure hypercholesterolemia, unspecified; F12.90 Cannabis use, unspecified, uncomplicated; Z88.5 Allergy status to narcotic agent; Z88.8 Allergy status to other drugs, medicaments and biological substances; Z79.84 Long term (current) use of oral hypoglycemic drugs; Z86.14 Personal history of Methicillin resistant Staphylococcus aureus infection; Z87.440 Personal history of urinary (tract) infections
CPT/HCPCS: 80048; 80307; 81001; 82948; 83036; 84703; 85025; 87493; 99285; J1815; J7030

== ENCOUNTER 2016-06-11 16:15 | Emergency (ER) | payer MEDICAID ==
[~2016-06-11] VITALS: Ht 170.2 cm; Wt 70.0 kg
[~2016-06-11 16:15] MED LIST changes: -GLUC1000 PO; +METF1000 PO; -METF500T PO
[2016-06-11 16:19] VITALS: BP 172/84; PULSE 90; RESP 12; TEMP 98.1; O2SAT 94
--- NOTE | 2016-06-11 16:22 | PD ---
Physical Exam Date Seen by Provider: Jun 11, 2016 Time Seen by Provider: 16:19 Narrative 41 YOWF 2DAY H/O SUAZO ,DIZZINESS, EYE PAIN, PROBLEMS FOCUSING. H/O SEIZURES NONE TODAY. JUST SEEN IN ER LAST WEEK. NO F/C, COUGH,OR ABD PAIN. VSS, AWAITING BED PLACEMENT MDM Medical Record Reviewed: Yes Supervised Visit with GLENYS: Yes Yandel Alcaraz Jun 11, 2016 16:22
[2016-06-11] MEDS ORDERED: SODIUM CHLOR 0.9% 1000 ML INJ 1,000 ML IV ONE (18:30)
[2016-06-11 18:42] LABS: AUTOMATED NEUTROPHIL # 5.6 TH/MM3 (1.8-7.7); BASOPHIL % 0.4 % (0.0-2.0); EOSINOPHIL # 0.1 TH/MM3 (0-0.4); EOSINOPHIL % 1.1 % (0.0-4.0); HEMATOCRIT 41.3 % (35.0-46.0); HEMO FLAGS DIFF FINAL; LYMPH % 28.5 % (9.0-44.0); LYMPHOCYTE # 2.5 TH/MM3 (1.0-4.8); MEAN CORPUSCULAR HEMOGLOBIN 31.2 PG (27.0-34.0); MEAN CORPUSCULAR HGB CONC 34.3 % (32.0-36.0); MONO % 6.1 % (0.0-8.0); NEUT % 63.9 % (16.0-70.0); PLATELET COUNT 253 TH/MM3 (150-450); RED BLOOD COUNT 4.54 MIL/MM3 (4.00-5.30); RED CELL DISTRIBUTION WIDTH 12.3 % (11.6-17.2); WHITE BLOOD COUNT 8.8 TH/MM3 (4.0-11.0)
--- NOTE | 2016-06-11 18:45 | PD ---
HPI Chief Complaint: Dizziness Time Seen by Provider: 18:12 Travel History International Travel<30 days: No Contact w/Intl Traveler<30days: No Traveled to known affect area: No History of Present Illness HPI 41-year-old female came to the emergency room with history of headache, dizziness past couple of days. Patient realized today that she has been taking more than she supposed to on her carbamazepine medication. She is supposed to take 300 mg 2 tablets twice a day. Instead her pills are 600 mg each and she is taking 600 mg 2 pills twice a day. Which means she is taking it double the dose than she supposed to and she has done that for past 1 week. Patient called her primary care who asked her to come to the emergency room. Here she is awake and answering questions appropriately. Her is here with her was very concerned. Vital signs otherwise stable. She has been nauseous. Patient is also on Dilantin and she is on these medications for seizure control. Has not had any seizure during this past 1 week however. PFSH Past Medical History Narrative Medical List of her past medical, surgical, social and family history was reviewed from the nursing note. Arthritis: No Cancer: No Cardiovascular Problems: Yes (HTN) High Cholesterol: Yes Diabetes: Yes Diminished Hearing: No Endocrine: Yes Genitourinary: No Hypertension: Yes Immune Disorder: No Musculoskeletal: No Neurologic: Yes (EPILEPSY) Psychiatric: No Reproductive: No Respiratory: Yes (PNEUMONIA , LEGIONAIRES DISEASE) Integumentary: Yes (MRSA 2007) Immunizations Current: Yes Seizures: Yes Thyroid Disease: Yes ?: Not LMP: 06/04/16 : 2 Para: 2 Miscarriage: 0 : 0 Ovarian Cysts: Yes Past Surgical History Abdominal Surgery: No Cardiac Surgery: No Ear Surgery: No Endocrine Surgery: No Eye Surgery: No Genitourinary Surgery: No Gynecologic Surgery: No Neurologic Surgery: No Oral Surgery: No Thoracic Surgery: No Other Surgery: Yes Social History Alcohol Use: Yes (OCC) Tobacco Use: No Substance Use: No Allergies-Medications (Allergen,Severity, Reaction): Coded Allergies: Codeine (Verified Allergy, Severe, ITCHING, 05/29/16) Tylenol #3 (Verified Allergy, Mild, ITCHY, 05/29/16) Comments List of her allergies reviewed from the nursing note. Reported Meds & Prescriptions Reported Meds & Active Scripts Active Zofran Odt (Ondansetron Odt) 4 Mg Tab 4 Mg SL Q6HR PRN Lisinopril 20 Mg Tab 20 Mg PO BID Metformin (Metformin HCl) 1,000 Mg Tab 1,000 Mg PO BIDPC With meals Reported Hydrochlorothiazide 25 Mg Tab 25 Mg PO DAILY Oxcarbazepine 300 Mg Tab 600 Mg PO BID Synthroid (Levothyroxine Sodium) 100 Mcg Tab 100 Mcg PO DAILY Xanax (Alprazolam) 1 Mg Tab 1 Mg PO BID PRN Narrative Medication List of her own medications reviewed from the nursing note. Review of Systems Except as stated in HPI: all other systems reviewed are Neg Physical Exam Narrative GENERAL: Awake, alert, mild distress SKIN: Focused skin assessment warm/dry. HEAD: Atraumatic. Normocephalic. EYES: Pupils equal and round. No scleral icterus. No injection or drainage. ENT: No nasal bleeding or discharge. Mucous membranes pink and moist. NECK: Trachea midline. No JVD. CARDIOVASCULAR: Regular rate and rhythm. No murmur appreciated. RESPIRATORY: No accessory muscle use. Clear to auscultation. Breath sounds equal bilaterally. GASTROINTESTINAL: Abdomen soft, non-tender, nondistended. Hepatic and splenic margins not palpable. MUSCULOSKELETAL: No obvious deformities. No clubbing. No cyanosis. No edema. NEUROLOGICAL: Awake and alert. No obvious cranial nerve deficits. Motor grossly within normal limits. Normal speech. PSYCHIATRIC: Appropriate mood and affect; insight and judgment normal. Data Data Last Documented VS Vital Signs Date Time Temp Pulse Resp B/P Pulse Ox O2 Delivery O2 Flow Rate FiO2 06/11/16 23:00 72 16 129/69 97 Room Air 06/11/16 20:43 97.0 Orders Complete Blood Count With Diff (06/11/16 18:17) Comprehensive Metabolic Panel (06/11/16 18:17) Carbamazepine (Tegretol) (06/11/16 18:17) Phenytoin (Dilantin) (06/11/16 18:17) Electrocardiogram (06/11/16 ) Vitreo Retinal Surgeon / Telemetry [id number] (06/11/16 18:17) Sodium Chlor 0.9% 1000 Ml Inj (Ns 1000 M (06/11/16 18:30) Lactic Acid (06/11/16 18:53) Ondansetron Inj (Zofran Inj) (06/11/16 19:45) Electrocardiogram (06/11/16 21:14) Labs Laboratory Tests Test 06/11/16 06/11/16 18:25 19:20 White Blood Count 8.8 TH/MM3 Red Blood Count 4.54 MIL/MM3 Hemoglobin 14.2 GM/DL Hematocrit 41.3 % Mean Corpuscular Volume 91.0 FL Mean Corpuscular Hemoglobin 31.2 PG Mean Corpuscular Hemoglobin 34.3 % Concent Red Cell Distribution Width 12.3 % Platelet Count 253 TH/MM3 Mean Platelet Volume 8.6 FL Neutrophils (%) (Auto) 63.9 % Lymphocytes (%) (Auto) 28.5 % Monocytes (%) (Auto) 6.1 % Eosinophils (%) (Auto) 1.1 % Basophils (%) (Auto) 0.4 % Neutrophils # (Auto) 5.6 TH/MM3 Lymphocytes # (Auto) 2.5 TH/MM3 Monocytes # (Auto) 0.5 TH/MM3 Eosinophils # (Auto) 0.1 TH/MM3 Basophils # (Auto) 0.0 TH/MM3 CBC Comment DIFF FINAL Differential Comment Sodium Level 133 MEQ/L Potassium Level 4.7 MEQ/L Chloride Level 97 MEQ/L Carbon Dioxide Level 26.4 MEQ/L Anion Gap 10 MEQ/L Blood Urea Nitrogen 5 MG/DL Creatinine 0.76 MG/DL Estimat Glomerular Filtration 84 ML/MIN Rate Random Glucose 214 MG/DL Calcium Level 9.0 MG/DL Total Bilirubin 0.3 MG/DL Aspartate Amino Transf 35 U/L (AST/SGOT) Alanine Aminotransferase 48 U/L (ALT/SGPT) Alkaline Phosphatase 39 U/L Total Protein 7.0 GM/DL Albumin 3.6 GM/DL Phenytoin (Dilantin) Level 2.3 MCG/ML Carbamazepine (Tegretol) Level LESS THAN 0.5 MCG/ML Lactic Acid Level 2.2 mmol/L MDM Medical Decision Making Medical Screen Exam Complete: Yes Emergency Medical Condition: Yes Medical Record Reviewed: Yes Interpretation(s) Twelve-lead EKG was reviewed by me. Normal sinus rhythm, left axis deviation, poor R-wave progression, nonspecific ST-T wave changes. Heart rate of 79 bpm. Differential Diagnosis Accidental overdose on Tegretol Narrative Course 6:44 PM awaiting for the blood test results to come back including the Dilantin and Tegretol levels. The nurse is calling poison control for further instructions. I have ordered 1 L of IV fluid bolus. 6:54 PM the nurse spoke with poison control and as per the recommendation monitor for 6 hours and watch for bradycardia and or hypotension. Mainly symptomatic treatment. Oxycarbamazepine level is a send out lab because most hospitals do not have it. Tegretol level would not suffice. They wanted a lactic acid level since she is also on metformin. All these have been ordered. Case will be signed over to the oncoming ER physician at this point. Procedures EKG Prior to Arrival: No Scripts Ondansetron Odt (Zofran Odt)4 Mg Tab4 Mg SL Q6HR PRN (Nausea/Vomiting) #7 TAB Ref 0 Prov:Alice Vivar MD 06/11/16 Lisinopril 20 Mg Tab20 Mg PO BID #60 TAB Ref 0 Prov:Alice Vivar MD 06/11/16 Tabitha Thornton MD Jun 11, 2016 18:45
[2016-06-11 19:12] LABS: ALKALINE PHOSPHATASE 39 U/L (45-117); ALT (GPT) 48 U/L (10-53); ANION GAP 10 MEQ/L (5-15); AST (GOT) 35 U/L (15-37); BICARBONATE 26.4 MEQ/L (21.0-32.0); BLOOD UREA NITROGEN 5 MG/DL (7-18); CHLORIDE 97 MEQ/L (98-107); GLOMERULAR FILTRATION RATE 84 ML/MIN (>89); POTASSIUM 4.7 MEQ/L (3.5-5.1); SODIUM (NA) 133 MEQ/L (136-145); TOTAL BILIRUBIN ADULT 0.3 MG/DL (0.2-1.0)
[2016-06-11 19:27] VITALS: BP 151/74; PULSE 75; RESP 16; O2SAT 97
[2016-06-11] MEDS ORDERED: LISI-515 PO ×2 (19:34→19:44)
[2016-06-11] MEDS ORDERED: HYDR25TA5 PO (19:34)
--- NOTE | 2016-06-11 19:43 | PD ---
Data Data Last Documented VS Vital Signs Date Time Temp Pulse Resp B/P Pulse Ox O2 Delivery O2 Flow Rate FiO2 06/11/16 23:00 72 16 129/69 97 Room Air 06/11/16 20:43 97.0 Orders Complete Blood Count With Diff (06/11/16 18:17) Comprehensive Metabolic Panel (06/11/16 18:17) Carbamazepine (Tegretol) (06/11/16 18:17) Phenytoin (Dilantin) (06/11/16 18:17) Electrocardiogram (06/11/16 ) [employer] / Telemetry [id number] (06/11/16 18:17) Sodium Chlor 0.9% 1000 Ml Inj (Ns 1000 M (06/11/16 18:30) Lactic Acid (06/11/16 18:53) Ondansetron Inj (Zofran Inj) (06/11/16 19:45) Electrocardiogram (06/11/16 21:14) Labs Laboratory Tests Test 06/11/16 06/11/16 18:25 19:20 White Blood Count 8.8 TH/MM3 Red Blood Count 4.54 MIL/MM3 Hemoglobin 14.2 GM/DL Hematocrit 41.3 % Mean Corpuscular Volume 91.0 FL Mean Corpuscular Hemoglobin 31.2 PG Mean Corpuscular Hemoglobin 34.3 % Concent Red Cell Distribution Width 12.3 % Platelet Count 253 TH/MM3 Mean Platelet Volume 8.6 FL Neutrophils (%) (Auto) 63.9 % Lymphocytes (%) (Auto) 28.5 % Monocytes (%) (Auto) 6.1 % Eosinophils (%) (Auto) 1.1 % Basophils (%) (Auto) 0.4 % Neutrophils # (Auto) 5.6 TH/MM3 Lymphocytes # (Auto) 2.5 TH/MM3 Monocytes # (Auto) 0.5 TH/MM3 Eosinophils # (Auto) 0.1 TH/MM3 Basophils # (Auto) 0.0 TH/MM3 CBC Comment DIFF FINAL Differential Comment Sodium Level 133 MEQ/L Potassium Level 4.7 MEQ/L Chloride Level 97 MEQ/L Carbon Dioxide Level 26.4 MEQ/L Anion Gap 10 MEQ/L Blood Urea Nitrogen 5 MG/DL Creatinine 0.76 MG/DL Estimat Glomerular Filtration 84 ML/MIN Rate Random Glucose 214 MG/DL Calcium Level 9.0 MG/DL Total Bilirubin 0.3 MG/DL Aspartate Amino Transf 35 U/L (AST/SGOT) Alanine Aminotransferase 48 U/L (ALT/SGPT) Alkaline Phosphatase 39 U/L Total Protein 7.0 GM/DL Albumin 3.6 GM/DL Phenytoin (Dilantin) Level 2.3 MCG/ML Carbamazepine (Tegretol) Level LESS THAN 0.5 MCG/ML Lactic Acid Level 2.2 mmol/L MDM Medical Record Reviewed: Yes Supervised Visit with GLENYS: No Narrative Course During the course of the patients emergency department visit, the patients history, examination, and differential diagnosis were reviewed with the patient. The patient had IV access obtained and blood work sent for analysis. The patient was placed on a solid waste technician with oximetry and blood pressure monitoring. The patient's case was checked out to me by Dr. Thornton at the conclusion of her shift. The patient is a 41-year-old female who presents to [facility] emergency Department with a history of seizure disorder. The patient was recently admitted to the hospital related to increased seizure activity. The patient was previously on Dilantin, however she had oxycarbazapine added to her regimen. The patient was discharged on a larger dose than she realized and has been doubling the medication accidentally. The patient reports that over the last few days she's had a headache, dizziness, and nausea. The patient realized the problem and came to the emergency department for evaluation and treatment. Prior to me assuming care of the patient, poison control was called regarding this patient's case. They reported that the patient should be monitored for 6 hours for bradycardia or hypotension. The Patient's vital signs have been within normal limits since arriving. The patient has already been in the emergency department for approximately 3 hours. The patient will be observed for an additional 3 hours. The patient had an EKG done at 181, sinus rhythm noted at 79, marked left axis deviation is noted, no acute ST segment elevation or depression, T waves are inverted in V1, lead 3, V3. QRS duration is 92 ms, QTC 388 ms. The patient was provided normal saline 1 L IV fluid bolus. The patient was given Zofran 4 mg IV. The patients laboratory studies were reviewed and remarkable for CBC is within normal limits. CMP is remarkable for sodium of 133, chloride 97, BUN 5, GFR of 84, glucose 214, alkaline phosphatase 39, Dilantin level is 2.3, carbamazepine level is less than 0.5. The patient has continued to be stable during her evaluation. A repeat EKG shows a sinus rhythm heart rate of 75, continued marked left axis deviation which may be at the patient's baseline, no acute ST segment elevation or depression, T waves are inverted in V1, V3, lead 3, QRS duration is 87 ms, QTC 398 ms. The patient has remained normotensive with no bradycardia. The patient has been able to ambulate without difficulty to the bathroom. The half- life of the medication that she accidentally overdosed on is 9 hours, therefore the patient will hold the medication for 24 hours and reinstitute the correct dose of her seizure medication after that. The patient is resting comfortably and feels better, is alert and in no distress. The patients results and examination findings were discussed with the patient The repeat examination is unremarkable and benign. The history, exam , diagnostic testing, and current condition do not suggest any significant pathology to warrant further testing, continued ED treatment, admission, or surgical evaluation at this point. The vital signs have been stable. The patient does not have uncontrollable pain, intractable vomiting, or other significant symptoms. The patient's condition is stable and appropriate for discharge. The patient will pursue further outpatient evaluation with a primary care physician or other designated or consulting physician as indicated in the discharge instructions. The patient expressed understanding and was agreeable with this plan. Diagnosis Primary Impression: Accidental overdose Qualified Code: T50.901A - Accidental overdose, initial encounter Referrals: Neurologist 2 days Primary Care Physician 1 week Patient Instructions: General Instructions Additional Instruction: The patient is instructed to restart her medication at the appropriate dose with the evening dose tomorrow. Scripts Ondansetron Odt (Zofran Odt)4 Mg Tab4 Mg SL Q6HR PRN (Nausea/Vomiting) #7 TAB Ref 0 Prov:Alice Vivar MD 06/11/16 Lisinopril 20 Mg Tab20 Mg PO BID #60 TAB Ref 0 Prov:Alice Vivar MD 06/11/16 Disposition: 01 DISCHARGE HOME Condition: Stable Alice Vivar MD Jun 11, 2016 19:43
[2016-06-11] MEDS ORDERED: ONDANSETRON HCL 4 MG/2 ML VIAL IV ONE (19:45)
[2016-06-11 20:43] VITALS: BP 135/70; PULSE 74; RESP 16; TEMP 97
[2016-06-11 23:00] VITALS: BP 129/69; PULSE 72; RESP 16; O2SAT 97
[2016-06-11] MEDS ORDERED: ZOFR4TAB3 SL (23:37)
--- NOTE | 2016-06-12 09:16 | EKG ---
Date Performed: 06/11/2016 Time Performed: 21:25:08 PTAGE: 41 years EKG: Sinus rhythm MARKED LEFT AXIS DEVIATION PATTERN CONSISTENT WITH PULMONARY DISEASE ABNORMAL ECG PREVIOUS TRACING : 06/11/2016 18.19 DOCTOR: Salas Mclean Interpretating Date/Time 06/12/2016 09:14:45
--- NOTE | 2016-06-12 09:51 | EKG ---
Date Performed: 06/11/2016 Time Performed: 18:19:55 PTAGE: 41 years EKG: Sinus rhythm MARKED LEFT AXIS DEVIATION PATTERN CONSISTENT WITH PULMONARY DISEASE ABNORMAL ECG NO PREVIOUS TRACING DOCTOR: Salas Mclean Interpretating Date/Time 06/12/2016 09:49:42
== END 2016-06-12 00:47 | disposition home or self-care (01) ==
LOC: NEPE 16:15
DX: T42.1X1A Poisoning by iminostilbenes, accidental (unintentional), initial encounter (principal); R00.1 Bradycardia, unspecified; R42 Dizziness and giddiness; R51 Headache
CPT/HCPCS: 80053; 80156; 80185; 83605; 85025; 93005; 96374; 99284; J2405; J7030

== ENCOUNTER 2016-11-19 18:41 | Emergency (ER) | payer MEDICAID ==
[~2016-11-19 18:41] MED LIST changes: +HYDR25TA5 PO; +LISI-515 PO; -LISI-585 PO; +ZOFR4TAB3 SL
[2016-11-19 18:46] VITALS: BP 124/71; PULSE 112; RESP 20; TEMP 98; O2SAT 94
[2016-11-19] MEDS ORDERED: PHEN-522 PO (18:51)
[2016-11-19] MEDS ORDERED: DILA100C PO (18:51)
[2016-11-19] MEDS ORDERED: SYNT25TA PO (18:51)
[2016-11-19] MEDS ORDERED: SODIUM CHLORIDE 0.9% FLUSH 10 ML FLUSH IVF PRN (19:15)
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
[2016-11-19 20:09] LABS: AUTOMATED NEUTROPHIL # 11.1 TH/MM3 (1.8-7.7); BASOPHIL # 0.1 TH/MM3 (0-0.2); BASOPHIL % 0.9 % (0.0-2.0); EOSINOPHIL # 0.1 TH/MM3 (0-0.4); EOSINOPHIL % 0.6 % (0.0-4.0); HEMATOCRIT 39.4 % (35.0-46.0); LYMPHOCYTE # 1.6 TH/MM3 (1.0-4.8); MEAN CELL VOLUME 91.7 FL (80.0-100.0); MEAN CORPUSCULAR HEMOGLOBIN 31.9 PG (27.0-34.0); MEAN CORPUSCULAR HGB CONC 34.8 % (32.0-36.0); MONO % 4.2 % (0.0-8.0); NEUT % 82.3 % (16.0-70.0); PLATELET COUNT 252 TH/MM3 (150-450); RED CELL DISTRIBUTION WIDTH 11.4 % (11.6-17.2); WHITE BLOOD COUNT 13.4 TH/MM3 (4.0-11.0)
[2016-11-19 20:16] LABS: HEMO FLAGS AUTO DIFF
[2016-11-19 20:30] LABS: CHLORIDE 99 MEQ/L (98-107); POTASSIUM 4.1 MEQ/L (3.5-5.1); SODIUM (NA) 135 MEQ/L (136-145)
[2016-11-19 20:32] LABS: ANION GAP 13 MEQ/L (5-15); BICARBONATE 23.1 MEQ/L (21.0-32.0); BLOOD UREA NITROGEN 8 MG/DL (7-18)
[2016-11-19 20:36] LABS: GLOMERULAR FILTRATION RATE 70 ML/MIN (>89)
[2016-11-19 20:40] LABS: BETA HCG QUANT LESS THAN 1 MIU/ML (0-5)
[2016-11-19 20:41] LABS: SCAN/DIFF AUTO DIFF CONFIRMED
[2016-11-19] MEDS ORDERED: KETOROLAC TROMETHAMINE 30 MG/ML (IVP) VIAL IV PUSH ONE (20:45)
[2016-11-19 21:00] VITALS: BP 106/77; PULSE 92; RESP 16; O2SAT 99
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
[2016-11-19] MEDS ORDERED: FOSPHENYTOIN SODIUM 500 MG PE/10 ML VIAL IV ONE (21:15)
[2016-11-19] MEDS ORDERED: FOSPHENYTOIN INJ 1,000 MGPE in SODIUM CHLORIDE 0.9% INJ 50 ML IV ONE (21:30)
[2016-11-19 22:07] LABS: PHENOBARBITAL LESS THAN 2.1 MCG/ML (15.0-40.0)
[2016-11-19 23:15] VITALS: BP 128/72
== END 2016-11-20 00:05 | disposition home or self-care (01) ==
LOC: PHED 18:41
DX: G40.909 Epilepsy, unspecified, not intractable, without status epilepticus (principal); E11.9 Type 2 diabetes mellitus without complications; I10 Essential (primary) hypertension; S80.212A Abrasion, left knee, initial encounter; W19.XXXA Unspecified fall, initial encounter
CPT/HCPCS: 73564; 73590; 80048; 80183; 80184; 80185; 84702; 85025; 96365; 96375; 99284; J1885; Q2009

== ENCOUNTER 2016-11-20 02:16 | Emergency (ER) | payer MEDICAID ==
[~2016-11-20 02:16] MED LIST changes: +DILA100C PO; -HYDR25TA5 PO; -LEVO.1 PO; -LISI-515 PO; -OXCA300T PO; +PHEN-522 PO; +SYNT25TA PO; -XANA1TAB2 PO; -ZOFR4TAB3 SL
[2016-11-20 02:21] VITALS: BP 120/65; PULSE 104; RESP 22; TEMP 98.5
[2016-11-20] MEDS ORDERED: PHENobarbital 32.4 MG TAB PO ONE (03:00)
--- NOTE | 2016-11-20 03:26 | RADRPT ---
EXAM DATE/TIME: 11/20/2016 03:08 [facility] COMPARISON: CT BRAIN W/O CONTRAST, October 21, 2013, 14:54. INDICATIONS : Possible seizure. RADIATION DOSE: 56.35 CTDIvol (mGy) MEDICAL HISTORY : Seizures. Hypertension. Diabetes mellitus type 2.Legionaires Disease. SURGICAL HISTORY : None. ENCOUNTER: Initial ACUITY: 1 day PAIN SCALE: 10/10 LOCATION: cranial TECHNIQUE: Multiple contiguous axial images were obtained of the head. Using automated exposure control and adj ustment of the mA and/or kV according to patient size, radiation dose was kept as low as reasonably a chievable to obtain optimal diagnostic quality images. DICOM format image data is available electro nically for review and comparison. FINDINGS: CEREBRUM: The ventricles are normal for age. No evidence of midline shift, mass lesion, hemorrhage or acute in farction. No extra-axial fluid collections are seen. POSTERIOR FOSSA: The cerebellum and brainstem are intact. The 4th ventricle is midline. The cerebellopontine angle i s unremarkable. EXTRACRANIAL: The visualized portion of the orbits is intact. SKULL: The calvaria is intact. No evidence of skull fracture. CONCLUSION: Normal examination for a patient of this age. No significant change has occurred. Yandel Menjivar MD on November 20, 2016 at 3:22 Board Certified Radiologist. This report was verified electronically.
[2016-11-20 06:39] VITALS: BP 126/67; PULSE 86; RESP 16; O2SAT 99
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
[2016-11-20 07:47] VITALS: BP 126/79
== END 2016-11-20 07:52 | disposition home or self-care (01) ==
LOC: NEPE 02:16
DX: R56.9 Unspecified convulsions (principal)
CPT/HCPCS: 70450; 99285

== ENCOUNTER 2016-11-25 11:25 | Emergency (ER) | payer MEDICAID ==
[~2016-11-25] VITALS: Ht 170.2 cm; Wt 106.8 kg
[2016-11-25 11:34] VITALS: BP 145/100; PULSE 100; RESP 15; TEMP 98.9; O2SAT 95
[2016-11-25] MEDS ORDERED: HYDR12.57 PO (11:48)
[2016-11-25] MEDS ORDERED: LISI2.5T3 PO (11:48)
[2016-11-25] MEDS ORDERED: ALPR.25 PO (11:48)
[2016-11-25] MEDS ORDERED: TRIL150T PO (11:48)
--- NOTE | 2016-11-25 12:14 | PD ---
HPI Chief Complaint: Injury Time Seen by Provider: 11:44 Travel History International Travel<30 days: No Contact w/Intl Traveler<30days: No Traveled to known affect area: No History of Present Illness HPI 41-year-old female presents to the emergency room for evaluation of left medial knee pain for the past week. Patient has history of seizures and fell one week ago. She came to the emergency room and had x-rays of her left knee and left tibia/fibular which were negative. She has not followed up with primary care physician or orthopedic doctor because she could not find one that accepts her insurance. Since then she has had pain with ambulation and range of motion of the left knee. No radiation. No paresthesias. She spent applying ice and taking Tylenol and Motrin without significant relief in symptoms. Pain is throbbing, constant, worse at night. History Past Medical Histgory Tetanus Vaccination: > 5 Years Hx Cancer: No Social History Alcohol Use: Yes (OCC) Tobacco Use: No Allergies-Medications (Allergen,Severity, Reaction): Coded Allergies: acetaminophen (Unverified Allergy, Mild, ITCHY, 11/25/16) codeine (Unverified Allergy, Mild, ITCHY, 11/25/16) Reported Meds & Prescriptions Reported Meds & Active Scripts Active Metformin (Metformin HCl) 1,000 Mg Tab 1,000 Mg PO BIDPC With meals Reported Lisinopril 2.5 Mg Tab Unknown Dose PO DAILY Xanax (Alprazolam) 0.25 Mg Tab Unknown Dose PO Q4H PRN Hydrochlorothiazide 12.5 Mg Cap Unknown Dose PO DAILY Trileptal (Oxcarbazepine) 150 Mg Tab Unknown Dose PO BID Synthroid (Levothyroxine Sodium) 25 Mcg Tab Unknown Dose PO DAILY Dilantin (Phenytoin Extended) 100 Mg Cap 300 Mg PO BID Review of Systems Except as stated in HPI: all other systems reviewed are Neg Physical Exam Narrative GENERAL: Well-nourished, well-developed female in no acute distress. Afebrile. Ambulatory with a mild limp. SKIN: Focused skin assessment warm/dry. Mild ecchymosis of the left knee. HEAD: Normocephalic. EYES: No scleral icterus. No injection or drainage. NECK: Supple, trachea midline. No JVD or lymphadenopathy. CARDIOVASCULAR: Regular rate and rhythm without murmurs, gallops, or rubs. RESPIRATORY: Breath sounds equal bilaterally. No accessory muscle use. MUSCULOSKELETAL: No cyanosis. Mild edema of the left knee. Possible small effusion. 2+ dorsalis pedis pulse. Full range of motion of the knee without significant difficulty. Tenderness to palpation of the medial aspect. Data Data Last Documented VS Vital Signs Date Time Temp Pulse Resp B/P (MAP) Pulse Ox O2 Delivery O2 Flow Rate FiO2 11/25/16 11:34 98.9 100 15 145/100 (115) 95 MDM Medical Screen Exam Complete: Yes Emergency Medical Condition: No Differential Diagnosis Left knee contusion Narrative Course 41-year-old female presents to the emergency room for evaluation of left knee pain after falling 1 week ago. Patient had a seizure and fell landing directly on her left knee. She had x-rays when she came to the emergency room for her seizure of the left knee and left tibia/fibula were negative. She has not followed up with primary care physician. Pain is persistent. Physical exam reveals mild edema and possible effusion of the left knee with tenderness to palpation medially. Left lower extremity is neurovascularly intact with 2+ dorsalis pedis pulse. She has full range of motion. No erythema. Minimal ecchymosis. Patient was informed that she'll need a follow-up with her primary care physician for outpatient MRI if symptoms persist. There are no urgent or emergent medical conditions this time. A medical screening exam was performed: At the time of evaluation the presenting medical condition was determined not to be of an emergent nature. The patient was given the option of receiving additional care, but declined. Patient was given options for additional community resources from which to obtain care. The Patient Has Been advised to seek medical attention for their presenting complaint. The patient has been advised to return to the ER at any time if an emergent condition develops. Primary Impression: Encounter for medical screening examination Disposition: 01 DISCHARGE HOME Condition: Stable Khalida Dumont Nov 25, 2016 12:12
== END 2016-11-25 12:11 | disposition left against medical advice (07) ==
LOC: PHEFT 11:25
DX: M25.562 Pain in left knee (principal)
CPT/HCPCS: 99281

== ENCOUNTER 2016-12-26 15:52 | Inpatient (IN) | payer MEDICAID ==
[~2016-12-26] VITALS: Ht 170.2 cm; Wt 108.0 kg
[2016-12-26] VITALS: BP 130/73; PULSE 91; RESP 20; TEMP 97.8; O2SAT 95
[~2016-12-26 15:52] MED LIST changes: +ALPR.25 PO; +HYDR12.57 PO; +LISI2.5T3 PO; -PHEN-522 PO; +TRIL150T PO
[2016-12-26] MEDS ORDERED: SODIUM CHLOR 0.9% 1000 ML INJ 1,000 ML IV ONE (16:05)
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
[2016-12-26] MEDS ORDERED: ONDANSETRON HCL 4 MG/2 ML VIAL IV PUSH ONE (16:15)
[2016-12-26 16:20] VITALS: BP 125/82; PULSE 102; RESP 16; TEMP 98.1; O2SAT 95
[2016-12-26 16:20] LABS: AUTOMATED NEUTROPHIL # 7.4 TH/MM3 (1.8-7.7); BASOPHIL # 0.2 TH/MM3 (0-0.2); BASOPHIL % 2.5 % (0.0-2.0); EOSINOPHIL # 0.1 TH/MM3 (0-0.4); EOSINOPHIL % 0.7 % (0.0-4.0); HEMATOCRIT 42.7 % (35.0-46.0); HEMO FLAGS DIFF FINAL; LYMPH % 11.8 % (9.0-44.0); LYMPHOCYTE # 1.1 TH/MM3 (1.0-4.8); MEAN CELL VOLUME 91.7 FL (80.0-100.0); MEAN CORPUSCULAR HEMOGLOBIN 30.9 PG (27.0-34.0); MEAN CORPUSCULAR HGB CONC 33.7 % (32.0-36.0); MONO % 8.5 % (0.0-8.0); NEUT % 76.5 % (16.0-70.0); PLATELET COUNT 279 TH/MM3 (150-450); RED BLOOD COUNT 4.66 MIL/MM3 (4.00-5.30); RED CELL DISTRIBUTION WIDTH 11.4 % (11.6-17.2); WHITE BLOOD COUNT 9.6 TH/MM3 (4.0-11.0)
[2016-12-26 16:24] VITALS: RESP 16; O2SAT 95
[2016-12-26] MEDS ORDERED: HYDR-3580 PO (16:32)
[2016-12-26 16:41] LABS: ALKALINE PHOSPHATASE 49 U/L (45-117); ALT (GPT) 74 U/L (10-53); ANION GAP 12 MEQ/L (5-15); AST (GOT) 35 U/L (15-37); BICARBONATE 28.3 MEQ/L (21.0-32.0); BLOOD UREA NITROGEN 5 MG/DL (7-18); CHLORIDE 77 MEQ/L (98-107); GLOMERULAR FILTRATION RATE 107 ML/MIN (>89); POTASSIUM 3.1 MEQ/L (3.5-5.1); TOTAL BILIRUBIN ADULT 0.4 MG/DL (0.2-1.0)
[2016-12-26 16:42] LABS: CREATINE KINASE 95 U/L (26-192)
[2016-12-26 16:44] LABS: SODIUM (NA) 117 MEQ/L (136-145)
[2016-12-26] MEDS ORDERED: SODIUM CHLOR 0.9% 1000 ML INJ 1,000 ML IV SCH (16:48)
--- NOTE | 2016-12-26 16:52 | RADRPT ---
EXAM DATE/TIME: 12/26/2016 16:19 [facility] COMPARISON: CHEST SINGLE AP, February 07, 2016, 8:50. INDICATIONS : Short of breath and productive cough for two days. MEDICAL HISTORY : Siezures SURGICAL HISTORY : ENCOUNTER: Initial ACUITY: 2 days PAIN SCORE: 0/10 LOCATION: Bilateral chest FINDINGS: A single view of the chest demonstrates the lungs to be symmetrically aerated without evidence of mas s, infiltrate or effusion. The cardiomediastinal contours are unremarkable. Osseous structures are intact. CONCLUSION: Normal examination. Neri Kent Jr., MD on December 26, 2016 at 16:50 Board Certified Radiologist. This report was verified electronically.
[2016-12-26] MEDS: POTASSIUM CHLOR 20 MEQ PREMIX 100 ML IV SCH ×2 (16:57→20:04)
[2016-12-26] MEDS ORDERED: ONDANSETRON HCL 4 MG/2 ML VIAL IVP PRN (17:15)
[2016-12-26] MEDS ORDERED: SODIUM CHLORIDE 0.9% FLUSH 10 ML FLUSH IV FLUSH PRN (17:15)
[2016-12-26] MEDS ORDERED: NALOXONE HCL 0.4 MG/ML AMP IV PUSH PRN (17:15)
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
[2016-12-26] MEDS ORDERED: LORazepam 2 MG/ML VIAL IV PUSH PRN (18:15)
[2016-12-26 18:18] LABS: BLOOD, URINE NEG (NEG); GLUCOSE,URINE NEG (NEG); KETONE, URINE TRACE mg/dL (NEG); NITRITE,URINE NEG (NEG); PH, URINE 7.5 (5.0-8.5)
[2016-12-26 18:19] VITALS: BP 131/74; PULSE 83; RESP 16; O2SAT 99
[2016-12-26 18:22] LABS: URINE COLOR STRAW (YELLW/STRAW)
[2016-12-26 18:23] LABS: COMMENT (UR) CULT NOT INDICATED; CULTURE IF INDICATED CULT NOT INDICATED; SQUAMOUS EPITHELIAL CELL URINE 0-5 /hpf (0-5); WBC, URINE 0-2 /hpf (0-5)
[2016-12-26] MEDS: SODIUM CHLOR 0.9% 1000 ML INJ 1,000 ML IV SCH ×2 (18:28→23:40)
[2016-12-26] MEDS ORDERED: IOHEXOL 350 MG/ML 10 ML VIAL (for RAD DIAG) IVCONTRAST ONE (18:55)
--- NOTE | 2016-12-26 19:09 | RADRPT ---
EXAM DATE/TIME: 12/26/2016 18:36 [place] COMPARISON: CHEST SINGLE AP, December 26, 2016, 16:19. INDICATIONS : Chest pain, difficulty breathing and general weakness x 5 days. IV CONTRAST: 75 cc Omnipaque 350 (iohexol) IV RADIATION DOSE: 21.41 CTDIvol (mGy) MEDICAL HISTORY : Seizures. Hypertension. Diabetes mellitus type 2. SURGICAL HISTORY : None. ENCOUNTER: Initial ACUITY: 4 - 6 days PAIN SCALE: 4/10 LOCATION: chest TECHNIQUE: Volumetric scanning of the chest was performed using a pulmonary embolism protocol MIP images were re constructed. Using automated exposure control and adjustment of the mA and/or kV according to patien t size, radiation dose was kept as low as reasonably achievable to obtain optimal diagnostic quality images. DICOM format image data is available electronically for review and comparison. Follow-up recommendations for detected pulmonary nodules are based at a minimum on nodule size and pa tient risk factors according to Fleischner Society Guidelines. FINDINGS: PULMONARY ARTERIES: No filling defects are seen in the pulmonary arteries through the segmental level. LUNGS: There is no consolidation or pneumothorax . No concerning pulmonary nodule is visualized. PLEURAE: There is no pleural thickening or pleural effusion. MEDIASTINUM: There is good visualization of the great vessels of the middle mediastinum. No evidence of mediastin al or hilar adenopathy/mass. MUSCULOSKELETAL: Within normal limits for patient age. MISCELLANEOUS: The visualized upper abdominal organs demonstrate no acute abnormality. CONCLUSION: Normal examination. Negative for pulmonary emboli. Negative for acute cardiopulmonary disease. Doe Castillo MD on December 26, 2016 at 19:06 Board Certified Radiologist. This report was verified electronically.
[2016-12-26 20:00] VITALS: BP 140/86; PULSE 85; PULSE 92; RESP 18; TEMP 97.9; O2SAT 96
[2016-12-26] MEDS: LEVOFLOXACIN 750 MG PREMIX INJ 150 ML IV SCH ×2 (20:04→21:44)
[2016-12-26] MEDS: ACETAMINOPHEN 325 MG TAB PO PRN (20:21)
[2016-12-26] MEDS: SODIUM CHLORIDE 0.9% FLUSH 10 ML FLUSH IV FLUSH SCH (20:22)
[2016-12-26] MEDS: HEPARIN SODIUM - SQ 10,000 UNITS/ML VIAL SQ SCH ×2 (21:35→21:38)
[2016-12-26 23:08] LABS: BICARBONATE 31.2 MEQ/L (21.0-32.0); MAGNESIUM 1.7 MG/DL (1.5-2.5); POTASSIUM 3.3 MEQ/L (3.5-5.1)
[2016-12-26] MEDS ORDERED: DEXTROSE 50% IN WATER 50 ML VIAL(D50) IV PUSH PRN (23:45)
[2016-12-26] MEDS ORDERED: methylPREDNISolone SOD SUCC 125 MG/2 ML VIAL IV PUSH ONE (23:45)
[2016-12-26] MEDS ORDERED: GLUCAGON 1 MG/ML VIAL OTHER PRN (23:45)
[2016-12-26] MEDS ORDERED: RESP: ALBUTEROL 2.5 MG/IPRATROPIUM 0.5 MG NEB (PRN) NEB (23:45)
[2016-12-26 23:50] VITALS: O2SAT 99
[2016-12-27] VITALS (9 sets, daily range): BP systolic 109–131; BP diastolic 58–84; PULSE 91–96; RESP 18–20; TEMP 97.1–98.4; O2SAT 93–98
[2016-12-27] MEDS ORDERED: RESP: ALBUTEROL 2.5 MG/IPRATROPIUM 0.5 MG NEB (SCH) NEB (04:00)
[2016-12-27] MEDS: ACETAMINOPHEN 325 MG TAB PO PRN (04:43)
[2016-12-27] MEDS: SODIUM CHLOR 0.9% 1000 ML INJ 1,000 ML IV SCH ×2 (04:44→12:47)
[2016-12-27] MEDS: HEPARIN SODIUM - SQ 10,000 UNITS/ML VIAL SQ SCH ×3 (04:45→21:26)
[2016-12-27 05:54] LABS: BICARBONATE 28.9 MEQ/L (21.0-32.0); POTASSIUM 3.2 MEQ/L (3.5-5.1)
[2016-12-27 05:55] LABS: AUTOMATED NEUTROPHIL # 4.9 TH/MM3 (1.8-7.7); BASOPHIL % 0.1 % (0.0-2.0); EOSINOPHIL % 0.1 % (0.0-4.0); HEMATOCRIT 35.9 % (35.0-46.0); HEMO FLAGS DIFF FINAL; LYMPH % 14.2 % (9.0-44.0); LYMPHOCYTE # 0.9 TH/MM3 (1.0-4.8); MEAN CELL VOLUME 92.5 FL (80.0-100.0); MEAN CORPUSCULAR HEMOGLOBIN 32.1 PG (27.0-34.0); MEAN CORPUSCULAR HGB CONC 34.7 % (32.0-36.0); MONO % 6.5 % (0.0-8.0); NEUT % 79.1 % (16.0-70.0); PLATELET COUNT 205 TH/MM3 (150-450); RED BLOOD COUNT 3.89 MIL/MM3 (4.00-5.30); RED CELL DISTRIBUTION WIDTH 11.1 % (11.6-17.2); WHITE BLOOD COUNT 6.2 TH/MM3 (4.0-11.0)
[2016-12-27] MEDS: RESP: ALBUTEROL 2.5 MG/IPRATROPIUM 0.5 MG NEB (SCH) NEB ×3 (08:00→20:30)
[2016-12-27] MEDS: INSULIN ASPART SUPPLEMENTAL SCALE SQ SCH ×4 (09:02→21:00)
[2016-12-27] MEDS: SODIUM CHLORIDE 0.9% FLUSH 10 ML FLUSH IV FLUSH SCH ×2 (09:03→21:00)
[2016-12-27] MEDS ORDERED: INFLUENZA VIRUS VACCINE (QUADRIVALENT) 0.5 ML SYR IM ONE (10:00)
[2016-12-27] MEDS ORDERED: POTASSIUM CHLORIDE 10 MEQ CONTROLLED RELEASE TAB PO ONE (13:00)
--- NOTE | 2016-12-27 13:08 | HHI.PR ---
Subjective Remarks Patient seen and evaluated in follow-up for hyponatremia and hypokalemia. Cognition is improved today. Sodium is improved also. Medications discussed with patient. She denies any reaction on hydrocodone and acetaminophen although she is listed as having an allergy to Tylenol and codeine. She denies this and we have removed from her allergy profile. Objective Vitals Vital Signs Date Time Temp Pulse Resp B/P (MAP) Pulse Ox O2 Delivery O2 Flow Rate FiO2 12/27/16 08:05 98 21 12/27/16 08:00 97.7 91 20 109/77 (88) 96 12/27/16 04:00 97.6 92 18 116/67 (83) 93 12/26/16 23:50 99 21 12/26/16 20:00 97.9 85 18 140/86 (104) 96 12/26/16 20:00 92 12/26/16 19:01 12/26/16 18:19 83 16 131/74 (93) 99 Room Air 12/26/16 16:24 16 95 Room Air 12/26/16 16:23 16 95 Room Air 12/26/16 16:20 98.1 102 16 125/82 (96) 95 I/O 12/26/16 12/26/16 12/26/16 12/27/16 12/27/16 12/27/16 07:00 15:00 23:00 07:00 15:00 23:00 Intake Total 1400 ml 640 ml Balance 1400 ml 640 ml Intake Oral 640 ml IV Total 1400 ml # Voids 4 # Bowel Movements 0 Result Diagram: 12/27/16 0510 12/27/16 0510 A/P Problem List: (1) Hyponatremia ICD Code: E87.1 - Hypo-osmolality and hyponatremia Status: Acute Plan: Etiology unclear, improved May be medication side effect (Trileptal) Gentle hydration, repeat BMP this pm and in am Recent viral infection levaquin (2) Seizure ICD Code: R56.9 - Unspecified convulsions Plan: Continue close observation Patient on Trileptal and Dilantin, cont dilantin may be more symptomatic with trileptal (3) Generalized weakness ICD Code: R53.1 - Weakness Status: Acute Plan: improved (4) Type 2 diabetes mellitus ICD Code: E11.9 - Type 2 diabetes mellitus without complications Status: Chronic Plan: Resume home medications when stable (metformin held due to contrast) ADA diet and sliding scale (5) Hypokalemia ICD Code: E87.6 - Hypokalemia Status: Acute Plan: Replace, check mag (6) Knee derangement ICD Code: M23.90 - Unspecified internal derangement of unspecified knee Plan: No evidence of PE Patient denies any allergic response to hydrocodone/acetaminophen, will resume Discharge Planning Likely discharge in a.m. pending electrolytes Monae Muniz MD Dec 27, 2016 13:08
[2016-12-27] MEDS ORDERED: PILL SPLITTER OTHER PRN (13:15)
[2016-12-27] MEDS ORDERED: CALCIUM GLUCONATE 500 MG TAB PO ONE (13:15)
[2016-12-27] MEDS ORDERED: CALCIUM CARBONATE 1.25 GM (CA 500 MG) TAB PO ONE (13:30)
[2016-12-27 13:58] LABS: BICARBONATE 27.1 MEQ/L (21.0-32.0); POTASSIUM 3.4 MEQ/L (3.5-5.1)
[2016-12-27] MEDS: PHENYTOIN SODIUM 100 MG CAP PO SCH ×2 (15:18→17:12)
[2016-12-27] MEDS: LISINOPRIL 5 MG TAB PO SCH (15:19)
[2016-12-27] MEDS: ACETAMINOPHEN/HYDROcodone 325 MG/7.5 MG TAB PO PRN ×2 (15:19→21:26)
[2016-12-27] MEDS: PSEUDOEPHEDRINE HCL 30 MG TAB PO PRN (15:19)
[2016-12-27 17:12] LABS: BICARBONATE 29.6 MEQ/L (21.0-32.0); POTASSIUM 3.9 MEQ/L (3.5-5.1)
[2016-12-27] MEDS: LEVOFLOXACIN 750 MG PREMIX INJ 150 ML IV SCH (17:12)
--- NOTE | 2016-12-27 22:02 | EKG ---
Date Performed: 12/26/2016 Time Performed: 16:18:15 PTAGE: 41 years EKG: Sinus rhythm BORDERLINE LEFT AXIS DEVIATION BORDERLINE ECG PREVIOUS TRACING : 06/11/2016 21.25 Compared to prior tracing no significant change DOCTOR: Twin Jeffery Interpretating Date/Time 12/27/2016 21:35:50
[2016-12-28] MEDS: PSEUDOEPHEDRINE HCL 30 MG TAB PO PRN ×2 (02:08→10:29)
[2016-12-28] MEDS: HEPARIN SODIUM - SQ 10,000 UNITS/ML VIAL SQ SCH ×2 (06:00→13:50)
[2016-12-28] MEDS: ACETAMINOPHEN/HYDROcodone 325 MG/7.5 MG TAB PO PRN ×2 (06:33→14:50)
[2016-12-28 07:53] LABS: POTASSIUM 3.4 MEQ/L (3.5-5.1)
[2016-12-28] MEDS: RESP: ALBUTEROL 2.5 MG/IPRATROPIUM 0.5 MG NEB (SCH) NEB ×2 (07:53→14:00)
[2016-12-28 08:00] VITALS: BP 121/81; PULSE 18; RESP 18; TEMP 97.6; O2SAT 93; O2SAT 98
[2016-12-28 08:00] LABS: BICARBONATE 28.6 MEQ/L (21.0-32.0)
[2016-12-28] MEDS: INSULIN ASPART SUPPLEMENTAL SCALE SQ SCH ×2 (08:00→12:40)
[2016-12-28] MEDS ORDERED: POTASSIUM PHOSPHATE INJ 30 MMOL in SODIUM CHLOR 0.9% 250 ML INJ 250 ML IV ONE (09:00)
[2016-12-28] MEDS: SODIUM CHLORIDE 0.9% FLUSH 10 ML FLUSH IV FLUSH SCH (09:08)
[2016-12-28] MEDS: PHENYTOIN SODIUM 100 MG CAP PO SCH ×2 (09:08→13:50)
[2016-12-28] MEDS: LISINOPRIL 5 MG TAB PO SCH (09:08)
--- NOTE | 2016-12-28 09:52 | PD.PN.STU ---
Subjective Remarks Pt is a 41yo female with h/o diabetes mellitus type 2, hypertension, seizures, and left knee derangement who came in the ER (12/26) with complaints of progressive generalized weakness for 5 days that significantly worsened over the last 24hrs. Labs on admission showed severe hyponatremia and hypokalemia. Today, sodium wnl and improved potassium levels Pt. was in bed during examination and reports headaches, weakness, constipation , and congestion, but is feeling much improved compared to the last couple of days. Reports that the breathing treatments and sudafed provided symptomatic relief of her congestion. She denies lightheadedness, seizures, CP, SOB, cough, abdominal pain, urinary incontinence, fever/chills, leg pain or edema. Overall, pt feels well and is eager to go home. Objective Vitals Vital Signs Date Time Temp Pulse Resp B/P (MAP) Pulse Ox O2 Delivery O2 Flow Rate FiO2 12/28/16 08:00 93 12/28/16 08:00 97.6 18 18 121/81 (94) 98 12/28/16 07:33 18 12/27/16 23:54 98.3 95 18 125/71 (89) 93 12/27/16 20:30 97 21 12/27/16 20:00 95 12/27/16 20:00 98.4 96 18 111/58 (75) 94 12/27/16 17:17 97.1 96 20 118/84 (95) 98 12/27/16 16:00 97.1 96 20 118/84 (95) 98 12/27/16 12:00 98.1 96 20 131/81 (98) 96 I/O 12/27/16 12/27/16 12/27/16 12/28/16 12/28/16 12/28/16 07:00 15:00 23:00 07:00 15:00 23:00 Intake Total 640 ml 1000 ml 1076 ml Balance 640 ml 1000 ml 1076 ml Intake Oral 640 ml 1000 ml IV Total 1076 ml # Voids 4 5 # Bowel Movements 0 0 Result Diagram: 12/27/16 0510 12/28/16 0630 Other Results Laboratory Tests Test 12/26/16 16:00 12/26/16 18:01 12/26/16 22:05 12/27/16 05:10 Red Cell Distribution Width 11.4 % (11.6-17.2) 11.1 % (11.6-17.2) Neutrophils (%) (Auto) 76.5 % (16.0-70.0) 79.1 % (16.0-70.0) Monocytes (%) (Auto) 8.5 % (0.0-8.0) Basophils (%) (Auto) 2.5 % (0.0-2.0) Blood Urea Nitrogen 5 MG/DL (7-18) 3 MG/DL (7-18) 3 MG/DL (7-18) Random Glucose 170 MG/DL (74-106) 165 MG/DL (74-106) 179 MG/DL (74-106) Calcium Level 8.4 MG/DL (8.5-10.1) 7.9 MG/DL (8.5-10.1) 8.1 MG/DL (8.5-10.1) Alanine Aminotransferase (ALT/SGPT) 74 U/L (10-53) Sodium Level 117 MEQ/L (136-145) 121 MEQ/L (136-145) 124 MEQ/L (136-145) Potassium Level 3.1 MEQ/L (3.5-5.1) 3.3 MEQ/L (3.5-5.1) 3.4 MEQ/L (3.5-5.1) Chloride Level 77 MEQ/L (98-107) 82 MEQ/L (98-107) 86 MEQ/L (98-107) Troponin I LESS THAN 0.02 NG/ML Urine Ketones TRACE mg/dL (NEG) Red Blood Count 3.89 MIL/MM3 (4.00-5.30) Lymphocytes # (Auto) 0.9 TH/MM3 (1.0-4.8) Creatinine 0.45 MG/DL (0.50-1.00) Test 12/27/16 16:35 12/28/16 06:30 Blood Urea Nitrogen 5 MG/DL (7-18) 6 MG/DL (7-18) Random Glucose 148 MG/DL (74-106) 137 MG/DL (74-106) Sodium Level 133 MEQ/L (136-145) Chloride Level 97 MEQ/L (98-107) Creatinine 0.45 MG/DL (0.50-1.00) Calcium Level 8.4 MG/DL (8.5-10.1) Potassium Level 3.4 MEQ/L (3.5-5.1) Imaging Last Impressions Chest X-Ray 12/26/16 1605 Signed Impressions: Service Date/Time: December 16:19 - CONCLUSION: Normal examination. Neri Kent Jr., MD CT Angiography 12/26/16 0000 Signed Impressions: Service Date/Time: December 18:36 - CONCLUSION: Normal examination. Negative for pulmonary emboli. Negative for acute cardiopulmonary disease. Doe Castillo MD Objective Remarks GENERAL: pleasant, WDWN, obese female who was in NAD SKIN: Warm and dry. HEAD: Atraumatic. Normocephalic. EYES: Pupils equal and round. EOMI. No scleral icterus. No injection or drainage. ENT: No nasal bleeding or discharge. Mucous membranes pink and moist. NECK: Trachea midline. No JVD. CARDIOVASCULAR: Regular rate and rhythm. S1 and S2 heard heard, no murmurs, gallops, rubs. RESPIRATORY: No accessory muscle use. Breath sounds equal with mild diffuse expiratory wheezing bilaterally. No crackles or ronchi. GASTROINTESTINAL: Hypoactive bowel sounds. Abdomen soft, non-tender, nondistended. Hepatic and splenic margins not palpable. MUSCULOSKELETAL: Able to move all 4 extremities with no difficulty. Extremities without clubbing, cyanosis, or edema. No obvious deformities. NEUROLOGICAL: Awake and alert. No obvious cranial nerve deficits. Motor grossly within normal limits. Five out of 5 muscle strength in the arms and legs. Normal speech. PSYCHIATRIC: Appropriate mood and affect; insight and judgment normal. Medications and IVs Current Medications Medications (Trade) Dose Ordered Sig/Essence Route Start Time Stop Time Status Last Admin (NS Flush) 2 ml UNSCH PRN IV FLUSH 12/26/16 17:15 (NS Flush) 2 ml BID IV FLUSH 12/26/16 21:00 12/28/16 09:08 (Tylenol) 650 mg Q4H PRN PO 12/26/16 17:15 12/27/16 04:43 (Zofran Inj) 4 mg Q6H PRN IVP 12/26/16 17:15 12/26/16 20:04 (Heparin Inj) 5,000 units Q8HR SQ 12/26/16 17:15 12/27/16 21:26 (Narcan Inj) 0.4 mg UNSCH PRN IV PUSH 12/26/16 17:15 (Ativan Inj) 1 mg Q2H PRN IV PUSH 12/26/16 18:15 12/27/16 00:20 (Duoneb Neb) 1 ampule Q2HR NEB PRN NEB 12/26/16 23:45 12/26/16 23:50 (D50w (Vial) Inj) 50 ml UNSCH PRN IV PUSH 12/26/16 23:45 (Glucagon Inj) 1 mg UNSCH PRN OTHER 12/26/16 23:45 (NovoLOG SUPPLEMENTAL SCALE) 1 ACHS SLIDING SCALE SQ 12/27/16 08:00 12/27/16 09:02 (Duoneb Neb) 1 ampule Q6HR WHILE AWAKE NEB NEB 12/27/16 08:00 12/28/16 07:53 (Ortley 7.5-325 Mg) 1 tab Q6H PRN PO 12/27/16 13:00 12/28/16 06:33 (Dilantin) 300 mg TID PO 12/27/16 14:00 12/28/16 09:08 (Prinivil) 2.5 mg DAILY PO 12/27/16 14:00 12/28/16 09:08 (Sudafed) 30 mg Q6H PRN PO 12/27/16 13:15 12/28/16 02:08 (Pill Splitter) 1 ea UNSCH PRN OTHER 12/27/16 13:15 (Levaquin) 750 mg Q24H PO 12/28/16 18:00 Potassium Phosphate 30 mmol/ Sodium Chloride 260 ml @ 43.333 mls/ hr ONCE ONCE IV 12/28/16 09:00 12/28/16 14:59 A/P Assessment and Plan 1. Hyponatremia- resolved etiology poss due to med side effects (HCTZ vs trileptal) monitor labs 2. Hypokalemia- improved supplement as needed monitor labs 3. Seizures- will f/u with Dr. Eleazar cazares restart trileptal 4. Generalized weakness-improved etiology poss due to electrolyte imbalance cont IVF supplement electrolytes as needed 5. Diabetes Type 2- chronic SSI daily accuchecks 6. Hypertension-chronic on lisinopril BP checks 7. Lt. knee derangement- following up with local physician on renwick for pain 8. Sinus congestion etiology unclear, poss due to allergies vs h/o recent viral infection from son cont Shikha Toney M3 Dec 28, 2016 09:52 Monae Muniz MD Dec 28, 2016 12:29
[2016-12-28] MEDS ORDERED: LEVA750T9 PO (11:17)
[2016-12-28] MEDS ORDERED: PSEU30TA82 PO (11:17)
--- NOTE | 2016-12-28 11:18 | HHI.DCPOC ---
Discharge Care Plan Diagnosis: (1) Sinus congestion (2) Knee derangement (3) Type 2 diabetes mellitus (4) Hyponatremia Goals to Promote Your Health * To prevent worsening of your condition and complications * To maintain your health at the optimal level Directions to Meet Your Goals Take your medications as prescribed Follow your dietary instruction Follow activity as directed Keep your appointments as scheduled Take your immunizations and boosters as scheduled If your symptoms worsen call your PCP, if no PCP go to Urgent Care Center or Emergency Room Smoking is Dangerous to Your Health. Avoid second hand smoke Call the 24-hour hour crisis hotline for domestic abuse at Monae Muniz MD Dec 28, 2016 11:18
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
[2016-12-28 12:00] VITALS: BP 111/76; PULSE 87; RESP 18; TEMP 97.7; O2SAT 94
[2016-12-28 16:00] VITALS: BP 124/77; PULSE 88; RESP 18; TEMP 97.6; O2SAT 97
[2016-12-28] MEDS ORDERED: LEVOFLOXACIN 750 MG TAB PO SCH (18:00)
== END 2016-12-28 17:30 | disposition home or self-care (01) | DRG 641 ==
LOC: PHED 15:52 → PHEDA 17:17 → PH3B 18:54
PROVIDERS: ADMIT Hospitalist; ATTEND Hospitalist
DX: E87.1 Hypo-osmolality and hyponatremia (principal); I10 Essential (primary) hypertension; E11.9 Type 2 diabetes mellitus without complications; Z79.84 Long term (current) use of oral hypoglycemic drugs; E87.6 Hypokalemia; M23.90 Unspecified internal derangement of unspecified knee; G40.909 Epilepsy, unspecified, not intractable, without status epilepticus; F41.9 Anxiety disorder, unspecified; E03.9 Hypothyroidism, unspecified; J06.9 Acute upper respiratory infection, unspecified; E78.00 Pure hypercholesterolemia, unspecified; E66.9 Obesity, unspecified; Z68.37 Body mass index [BMI] 37.0-37.9, adult; Z23 Encounter for immunization
CPT/HCPCS: 71010; 71275; 80048; 80053; 80185; 81001; 82550; 82948; 83605; 83735; 84443; 84484; 85025; 87040; 87081; 87804; 87880; 90471; 90686; 93005; 94640; 94664; 96361; 96374; 96375; G0008; J1644; J1815; J1956; J2060; J2405; J2930; J3480; J7030; J7050; Q2038; Q9967

== ENCOUNTER 2017-06-05 17:41 | Emergency (ER) | payer MEDICAID ==
[~2017-06-05] VITALS: Ht 170.2 cm; Wt 96.0 kg
[~2017-06-05 17:41] MED LIST changes: +HYDR-3580 PO; -HYDR12.57 PO; +LEVA750T9 PO; +PSEU30TA82 PO
[2017-06-05 17:43] VITALS: BP 134/80; PULSE 101; RESP 16; TEMP 98.7; O2SAT 97
--- NOTE | 2017-06-05 18:57 | PD ---
HPI Chief Complaint: Dizziness Time Seen by Provider: 17:57 Travel History International Travel<30 days: No Contact w/Intl Traveler<30days: No Traveled to known affect area: No History of Present Illness HPI This is a 42-year-old female presents to the ER complaining of dizziness and generalized weakness for the last 3 days. Patient has history of seizures and states that "it feels like she will have a seizure". She did not have seizures for the last 4 months but is worried that she will have another seizure. Patient states that she has been feeling weak all over and dizzy. Patient denies any blurry vision or motor or sensory loss or slurred speech. She states that she also noticed numbness and tingling around her mouth and nose in the last 2 days comes and goes. She is unable to explain why she get numbness around her mouth and never had these symptoms before. She follows up with neurologist Dr. Bush and is compliant with her medications. PFSH Past Medical History Hx Anticoagulant Therapy: No Arthritis: No Asthma: No Anxiety: Yes (PRIOR TO SEIZURE) Heart Rhythm Problems: No Cancer: No Cardiovascular Problems: Yes (HTN, CHOL) High Cholesterol: Yes Chest Pain: No Congestive Heart Failure: No COPD: No Diabetes: Yes Patient Takes Glucophage: No Diminished Hearing: No Endocrine: Yes Genitourinary: No Hypertension: Yes Immune Disorder: No Implanted Vascular Access Dvce: No Musculoskeletal: No Neurologic: Yes (EPILEPSY) Psychiatric: No Reproductive: No Respiratory: Yes (HX PNEUMONIA, LEGIONAIRES DISEASE) Integumentary: Yes (HX MRSA 2007) Immunizations Current: Yes Seizures: Yes Sleep Apnea: No Thyroid Disease: Yes (HYPO) Influenza Vaccination: Yes ?: Not : 2 Para: 2 Miscarriage: 0 : 0 Ovarian Cysts: Yes Past Surgical History Abdominal Surgery: No Cardiac Surgery: No Ear Surgery: No Endocrine Surgery: No Eye Surgery: No Genitourinary Surgery: No Gynecologic Surgery: No Neurologic Surgery: No Oral Surgery: No Thoracic Surgery: No Other Surgery: Yes Social History Alcohol Use: Yes (OCC) Tobacco Use: No Substance Use: Yes (MARIJUANA/WEEKLY) Allergies-Medications (Allergen,Severity, Reaction): Coded Allergies: No Known Allergies (Verified , 06/05/17) Reported Meds & Prescriptions Reported Meds & Active Scripts Active Sudafed (Pseudoephedrine HCl) 30 Mg Tablet 30 Mg PO Q6H PRN Metformin (Metformin HCl) 1,000 Mg Tab 1,000 Mg PO BIDPC With meals Reported Hydrocodone-Acetaminophen 7.5-325 mg Tab 1 Tab PO Q6H PRN Lisinopril 2.5 Mg Tab Unknown Dose PO DAILY Xanax (Alprazolam) 0.25 Mg Tab Unknown Dose PO Q4H PRN Trileptal (Oxcarbazepine) 150 Mg Tab Unknown Dose PO BID Synthroid (Levothyroxine Sodium) 25 Mcg Tab Unknown Dose PO DAILY Dilantin (Phenytoin Extended) 100 Mg Cap 300 Mg PO BID Review of Systems Except as stated in HPI: all other systems reviewed are Neg Physical Exam Narrative GENERAL: Alert oriented 3 no acute distress SKIN: Focused skin assessment warm/dry. HEAD: Atraumatic. Normocephalic. EYES: Pupils equal and round. No scleral icterus. No injection or drainage. ENT: No nasal bleeding or discharge. Mucous membranes pink and moist. NECK: Trachea midline. No JVD. CARDIOVASCULAR: Regular rate and rhythm. No murmur appreciated. RESPIRATORY: No accessory muscle use. Clear to auscultation. Breath sounds equal bilaterally. GASTROINTESTINAL: Abdomen soft, non-tender, nondistended. Hepatic and splenic margins not palpable. MUSCULOSKELETAL: No obvious deformities. No clubbing. No cyanosis. No edema. NEUROLOGICAL: Awake and alert. No obvious cranial nerve deficits. Motor grossly within normal limits. Normal speech. PSYCHIATRIC: Appropriate mood and affect; insight and judgment normal. Data Data Last Documented VS Vital Signs Date Time Temp Pulse Resp B/P (MAP) Pulse Ox O2 Delivery O2 Flow Rate FiO2 06/05/17 21:00 84 20 125/70 (88) 98 06/05/17 18:07 Room Air 06/05/17 17:43 98.7 Orders Orders Complete Blood Count With Diff (06/05/17 18:14) Comprehensive Metabolic Panel (06/05/17 18:14) Urinalysis - C+S If Indicated (06/05/17 18:14) Ct Brain W/O Iv Contrast(Rout) (06/05/17 ) Thyroid Stimulating Hormone (06/05/17 18:14) Ed Discharge Order (06/05/17 20:06) Labs Laboratory Tests Test 06/05/17 19:10 White Blood Count 8.1 TH/MM3 Red Blood Count 4.37 MIL/MM3 Hemoglobin 13.7 GM/DL Hematocrit 40.7 % Mean Corpuscular Volume 93.3 FL Mean Corpuscular Hemoglobin 31.5 PG Mean Corpuscular Hemoglobin Concent 33.7 % Red Cell Distribution Width 11.7 % Platelet Count 285 TH/MM3 Mean Platelet Volume 7.3 FL Neutrophils (%) (Auto) 64.1 % Lymphocytes (%) (Auto) 28.3 % Monocytes (%) (Auto) 4.8 % Eosinophils (%) (Auto) 1.3 % Basophils (%) (Auto) 1.5 % Neutrophils # (Auto) 5.2 TH/MM3 Lymphocytes # (Auto) 2.3 TH/MM3 Monocytes # (Auto) 0.4 TH/MM3 Eosinophils # (Auto) 0.1 TH/MM3 Basophils # (Auto) 0.1 TH/MM3 CBC Comment DIFF FINAL Differential Comment Urine Color YELLOW Urine Turbidity SL CLOUDY Urine pH 6.5 Urine Specific [place] 1.020 Urine Protein NEG mg/dL Urine Glucose (UA) NEG mg/dL Urine Ketones NEG mg/dL Urine Occult Blood NEG Urine Nitrite NEG Urine Bilirubin NEG Urine Urobilinogen 0.2 MG/DL Urine Leukocyte Esterase NEG Urine RBC 0-2 /hpf Urine WBC 0-2 /hpf Urine Squamous Epithelial Cells > 8 /hpf Urine Bacteria FEW /hpf Microscopic Urinalysis Comment CULT NOT INDICATED Blood Urea Nitrogen 11 MG/DL Creatinine 0.64 MG/DL Random Glucose 105 MG/DL Total Protein 7.3 GM/DL Albumin 3.4 GM/DL Calcium Level 8.8 MG/DL Alkaline Phosphatase 49 U/L Aspartate Amino Transf (AST/SGOT) 18 U/L Alanine Aminotransferase (ALT/SGPT) 33 U/L Total Bilirubin LESS THAN 0.1 MG/DL Sodium Level 138 MEQ/L Potassium Level 4.1 MEQ/L Chloride Level 103 MEQ/L Carbon Dioxide Level 28.3 MEQ/L Anion Gap 7 MEQ/L Estimat Glomerular Filtration Rate 102 ML/MIN Thyroid Stimulating Hormone 3rd Gen 1.040 uIU/ML [facility] Medical Decision Making Medical Screen Exam Complete: Yes Emergency Medical Condition: Yes Differential Diagnosis Multiple sclerosis, intracranial pathology, hypothyroid. Narrative Course Pending labs and CAT scan, will be signed out to next shift Dr. Osborn. Diagnosis Primary Impression: Generalized weakness Suhail Mark MD Jun 05, 2017 18:57
--- NOTE | 2017-06-05 19:02 | RADRPT ---
EXAM DATE/TIME: 06/05/2017 18:31 [place] COMPARISON: CT BRAIN W/O CONTRAST, November 20, 2016, 3:08. INDICATIONS : Dizziness. General weakness. RADIATION DOSE: 64.79 CTDIvol (mGy) MEDICAL HISTORY : Hypertension. Seizures. Diabetes mellitus type 2. SURGICAL HISTORY : None. ENCOUNTER: Initial ACUITY: 2 days PAIN SCALE: 0/10 LOCATION: cranial TECHNIQUE: Multiple contiguous axial images were obtained of the head. Using automated exposure control and adj ustment of the mA and/or kV according to patient size, radiation dose was kept as low as reasonably a chievable to obtain optimal diagnostic quality images. DICOM format image data is available electro nically for review and comparison. FINDINGS: CEREBRUM: The ventricles are normal for age. No evidence of midline shift, mass lesion, hemorrhage or acute in farction. No extra-axial fluid collections are seen. POSTERIOR FOSSA: The cerebellum and brainstem are intact. The 4th ventricle is midline. The cerebellopontine angle i s unremarkable. EXTRACRANIAL: The visualized portion of the orbits is intact. SKULL: The calvaria is intact. No evidence of skull fracture. CONCLUSION: No acute disease. Alcides Kate MD on June 05, 2017 at 19:00 Board Certified Radiologist. This report was verified electronically.
[2017-06-05 19:22] LABS: AUTOMATED NEUTROPHIL # 5.2 TH/MM3 (1.8-7.7); BASOPHIL # 0.1 TH/MM3 (0-0.2); BASOPHIL % 1.5 % (0.0-2.0); BILIRUBIN, URINE NEG (NEG); BLOOD, URINE NEG (NEG); EOSINOPHIL # 0.1 TH/MM3 (0-0.4); EOSINOPHIL % 1.3 % (0.0-4.0); GLUCOSE,URINE NEG (NEG); HEMATOCRIT 40.7 % (35.0-46.0); HEMOGLOBIN 13.7 GM/DL (11.6-15.3); KETONE, URINE NEG (NEG); LYMPH % 28.3 % (9.0-44.0); LYMPHOCYTE # 2.3 TH/MM3 (1.0-4.8); MEAN CELL VOLUME 93.3 FL (80.0-100.0); MEAN CORPUSCULAR HEMOGLOBIN 31.5 PG (27.0-34.0); MEAN CORPUSCULAR HGB CONC 33.7 % (32.0-36.0); MEAN PLATELET VOLUME 7.3 FL (7.0-11.0); MONO % 4.8 % (0.0-8.0); MONOCYTE # 0.4 TH/MM3 (0-0.9); NEUT % 64.1 % (16.0-70.0); NITRITE,URINE NEG (NEG); PH, URINE 6.5 (5.0-8.5); PLATELET COUNT 285 TH/MM3 (150-450); RED BLOOD COUNT 4.37 MIL/MM3 (4.00-5.30); RED CELL DISTRIBUTION WIDTH 11.7 % (11.6-17.2); URINE COLOR YELLOW (YELLW/STRAW); URINE LEUKOCYTE ESTERASE NEG (NEG); WHITE BLOOD COUNT 8.1 TH/MM3 (4.0-11.0)
[2017-06-05 19:29] LABS: BACTERIA, URINE FEW /hpf; RBC, URINE 0-2 /hpf (0-3); SQUAMOUS EPITHELIAL CELL URINE > 8 /hpf (0-5); WBC, URINE 0-2 /hpf (0-5)
[2017-06-05 19:30] LABS: CHLORIDE 103 MEQ/L (98-107); SODIUM (NA) 138 MEQ/L (136-145)
--- NOTE | 2017-06-05 19:30 | PD ---
Physical Exam Time Seen by Provider: 19:[address] Contreras left this patient with me to check the CT scan of the brain and laboratory and, if normal, discharge to follow-up with her neurologist. Data Data Last Documented VS Vital Signs Date Time Temp Pulse Resp B/P (MAP) Pulse Ox O2 Delivery O2 Flow Rate FiO2 06/05/17 19:33 83 20 121/73 (89) 96 06/05/17 18:07 Room Air 06/05/17 17:43 98.7 Orders Orders Complete Blood Count With Diff (06/05/17 18:14) Comprehensive Metabolic Panel (06/05/17 18:14) Urinalysis - C+S If Indicated (06/05/17 18:14) Ct Brain W/O Iv Contrast(Rout) (06/05/17 ) Thyroid Stimulating Hormone (06/05/17 18:14) Labs Laboratory Tests Test 06/05/17 19:10 White Blood Count 8.1 TH/MM3 Red Blood Count 4.37 MIL/MM3 Hemoglobin 13.7 GM/DL Hematocrit 40.7 % Mean Corpuscular Volume 93.3 FL Mean Corpuscular Hemoglobin 31.5 PG Mean Corpuscular Hemoglobin Concent 33.7 % Red Cell Distribution Width 11.7 % Platelet Count 285 TH/MM3 Mean Platelet Volume 7.3 FL Neutrophils (%) (Auto) 64.1 % Lymphocytes (%) (Auto) 28.3 % Monocytes (%) (Auto) 4.8 % Eosinophils (%) (Auto) 1.3 % Basophils (%) (Auto) 1.5 % Neutrophils # (Auto) 5.2 TH/MM3 Lymphocytes # (Auto) 2.3 TH/MM3 Monocytes # (Auto) 0.4 TH/MM3 Eosinophils # (Auto) 0.1 TH/MM3 Basophils # (Auto) 0.1 TH/MM3 CBC Comment DIFF FINAL Differential Comment Urine Color YELLOW Urine Turbidity SL CLOUDY Urine pH 6.5 Urine Specific [place] 1.020 Urine Protein NEG mg/dL Urine Glucose (UA) NEG mg/dL Urine Ketones NEG mg/dL Urine Occult Blood NEG Urine Nitrite NEG Urine Bilirubin NEG Urine Urobilinogen 0.2 MG/DL Urine Leukocyte Esterase NEG Urine RBC 0-2 /hpf Urine WBC 0-2 /hpf Urine Squamous Epithelial Cells > 8 /hpf Urine Bacteria FEW /hpf Microscopic Urinalysis Comment CULT NOT INDICATED Blood Urea Nitrogen 11 MG/DL Creatinine 0.64 MG/DL Random Glucose 105 MG/DL Total Protein 7.3 GM/DL Albumin 3.4 GM/DL Calcium Level 8.8 MG/DL Alkaline Phosphatase 49 U/L Aspartate Amino Transf (AST/SGOT) 18 U/L Alanine Aminotransferase (ALT/SGPT) 33 U/L Total Bilirubin LESS THAN 0.1 MG/DL Sodium Level 138 MEQ/L Potassium Level 4.1 MEQ/L Chloride Level 103 MEQ/L Carbon Dioxide Level 28.3 MEQ/L Anion Gap 7 MEQ/L Estimat Glomerular Filtration Rate 102 ML/MIN Thyroid Stimulating Hormone 3rd Gen 1.040 uIU/ML MDM Medical Record Reviewed: Yes Supervised Visit with GLENYS: No Interpretation(s) The CT brain shows no acute disease and the CBC is normal. The urinalysis is normal and cultures not indicated. The complete metabolic profile is normal. The TSH is normal. Differential Diagnosis Weakness from electrolyte disorder, hypoglycemia, depression, overmedication, hyperglycemia, brain mass-highly unlikely, multiple sclerosis, intracranial bleed-highly unlikely Narrative Course At this time we cannot identify the cause of the weakness. The dizziness is nonvertiginous. She needs to follow-up with her neurologist. She has no focal neurologic signs at this time. Diagnosis Primary Impression: Generalized weakness Additional Instruction: As we discussed, follow-up with your neurologist. We gave you the laboratory/ imaging results to take to your neurologist. Disposition: 01 DISCHARGE HOME Condition: Stable Sai Osborn MD Jun 05, 2017 19:30
[2017-06-05 19:33] VITALS: BP 121/73; PULSE 83; RESP 20; O2SAT 96
[2017-06-05 19:33] LABS: ALBUMIN 3.4 GM/DL (3.4-5.0); BICARBONATE 28.3 MEQ/L (21.0-32.0); BLOOD UREA NITROGEN 11 MG/DL (7-18); CALCIUM 8.8 MG/DL (8.5-10.1); GLUCOSE,RANDOM 105 MG/DL (74-106)
[2017-06-05 19:36] LABS: ALT (GPT) 33 U/L (10-53); AST (GOT) 18 U/L (15-37); CREATININE 0.64 MG/DL (0.50-1.00); GLOMERULAR FILTRATION RATE 102 ML/MIN (>89)
[2017-06-05 19:38] LABS: TOTAL BILIRUBIN ADULT LESS THAN 0.1 MG/DL (0.2-1.0); TOTAL PROTEIN 7.3 GM/DL (6.4-8.2)
[2017-06-05 19:39] LABS: ALKALINE PHOSPHATASE 49 U/L (45-117)
[2017-06-05 21:00] VITALS: BP 125/70
== END 2017-06-05 20:46 | disposition home or self-care (01) ==
LOC: PHED 17:41
DX: R53.1 Weakness (principal); R42 Dizziness and giddiness; F12.90 Cannabis use, unspecified, uncomplicated; E03.9 Hypothyroidism, unspecified; E11.9 Type 2 diabetes mellitus without complications; I10 Essential (primary) hypertension; Z79.84 Long term (current) use of oral hypoglycemic drugs
CPT/HCPCS: 70450; 80053; 81001; 84443; 85025; 99284

== ENCOUNTER 2017-07-08 08:29 | Emergency (ER) | payer MEDICAID ==
[~2017-07-08] VITALS: Ht 170.2 cm; Wt 100.0 kg
[~2017-07-08 08:29] MED LIST changes: -LEVA750T9 PO
[2017-07-08 08:30] VITALS: BP 127/76; PULSE 81; RESP 18; TEMP 96.8; O2SAT 98
[2017-07-08] MEDS ORDERED: SODIUM CHLOR 0.9% 1000 ML INJ 1,000 ML IV ONE (09:15)
[2017-07-08] MEDS ORDERED: ONDANSETRON HCL 4 MG/2 ML VIAL IV PUSH ONE (09:15)
[2017-07-08 09:40] LABS: AUTOMATED NEUTROPHIL # 3.6 TH/MM3 (1.8-7.7); BASOPHIL % 0.4 % (0.0-2.0); EOSINOPHIL # 0.1 TH/MM3 (0-0.4); EOSINOPHIL % 1.2 % (0.0-4.0); HEMATOCRIT 44.2 % (35.0-46.0); HEMOGLOBIN 15.4 GM/DL (11.6-15.3); LYMPH % 51.5 % (9.0-44.0); LYMPHOCYTE # 4.5 TH/MM3 (1.0-4.8); MEAN CELL VOLUME 93.9 FL (80.0-100.0); MEAN CORPUSCULAR HEMOGLOBIN 32.7 PG (27.0-34.0); MEAN CORPUSCULAR HGB CONC 34.8 % (32.0-36.0); MEAN PLATELET VOLUME 7.5 FL (7.0-11.0); MONO % 5.7 % (0.0-8.0); MONOCYTE # 0.5 TH/MM3 (0-0.9); NEUT % 41.2 % (16.0-70.0); PLATELET COUNT 324 TH/MM3 (150-450); RED CELL DISTRIBUTION WIDTH 12.6 % (11.6-17.2); WHITE BLOOD COUNT 8.8 TH/MM3 (4.0-11.0)
--- NOTE | 2017-07-08 09:45 | PD ---
HPI Chief Complaint: Neuro Symptoms/ Deficits Time Seen by Provider: 09:08 Travel History International Travel<30 days: No Contact w/Intl Traveler<30days: No Traveled to known affect area: No History of Present Illness HPI Is a 42-year-old woman presents to the emergency department complaining of dizziness. She has a history of seizures as well as diabetes and hypothyroidism. States she has had numbness in her face for the past 1-2 weeks. States since yesterday she started having dizziness. Dizziness is constant, no aggravating or alleviating factors. Associated with funny vision changes she describes as feeling like her eyes are somewhat cross eyed. States it feels similar to when her sodium was very low in the past. She states it does not feel like her previous seizure or others. She has been taking her medications regularly including Dilantin and Trileptal. She is also on metformin. No other complaints. History Past Medical History Narrative Medical Seizures Diabetes Hypothyroidism Hypertension Hyperlipidemia LMP: 06/2017 : 2 Para: 2 Social History Alcohol Use: No Tobacco Use: No Allergies-Medications (Allergen,Severity, Reaction): Coded Allergies: No Known Allergies (Verified , 07/08/17) Reported Meds & Prescriptions Reported Meds & Active Scripts Active Metformin (Metformin HCl) 1,000 Mg Tab 1,000 Mg PO BIDPC With meals Reported Lisinopril 2.5 Mg Tab Unknown Dose PO DAILY Xanax (Alprazolam) 0.25 Mg Tab Unknown Dose PO Q4H PRN Trileptal (Oxcarbazepine) 150 Mg Tab Unknown Dose PO BID Synthroid (Levothyroxine Sodium) 25 Mcg Tab Unknown Dose PO DAILY Dilantin (Phenytoin Extended) 100 Mg Cap 300 Mg PO BID Review of Systems Except as stated in HPI: all other systems reviewed are Neg Physical Exam Narrative GENERAL: Well-appearing 42-year-old woman, no acute distress. SKIN: Focused skin assessment warm/dry. HEAD: Atraumatic. Normocephalic. EYES: Pupils equal and round. No scleral icterus. No injection or drainage. ENT: No nasal bleeding or discharge. Mucous membranes pink and moist. NECK: Trachea midline. No JVD. CARDIOVASCULAR: Regular rate and rhythm. No murmur appreciated. RESPIRATORY: No accessory muscle use. Clear to auscultation. Breath sounds equal bilaterally. GASTROINTESTINAL: Abdomen soft, non-tender, nondistended. Hepatic and splenic margins not palpable. MUSCULOSKELETAL: No obvious deformities. No clubbing. No cyanosis. No edema. NEUROLOGICAL: Awake and alert. No obvious cranial nerve deficits. No nystagmus. Normal finger to nose. Normal heel to roa. Motor grossly within normal limits. Normal speech. Data Data Last Documented VS Vital Signs Date Time Temp Pulse Resp B/P (MAP) Pulse Ox O2 Delivery O2 Flow Rate FiO2 07/08/17 08:30 96.8 81 18 127/76 (93) 98 Orders Orders Iv Access Insert/Monitor (07/08/17 09:09) Complete Blood Count With Diff (07/08/17 09:09) Comprehensive Metabolic Panel (07/08/17 09:09) Ed Urine Pregnancytest Poc (07/08/17 09:09) Phenytoin (Dilantin) (07/08/17 09:11) Trileptal (Oxycarbazapine) (07/08/17 09:11) Sodium Chlor 0.9% 1000 Ml Inj (Ns 1000 M (07/08/17 09:15) Ondansetron Inj (Zofran Inj) (07/08/17 09:15) Labs Laboratory Tests Test 07/08/17 09:00 White Blood Count 8.8 TH/MM3 Red Blood Count 4.70 MIL/MM3 Hemoglobin 15.4 GM/DL Hematocrit 44.2 % Mean Corpuscular Volume 93.9 FL Mean Corpuscular Hemoglobin 32.7 PG Mean Corpuscular Hemoglobin Concent 34.8 % Red Cell Distribution Width 12.6 % Platelet Count 324 TH/MM3 Mean Platelet Volume 7.5 FL Neutrophils (%) (Auto) 41.2 % Lymphocytes (%) (Auto) 51.5 % Monocytes (%) (Auto) 5.7 % Eosinophils (%) (Auto) 1.2 % Basophils (%) (Auto) 0.4 % Neutrophils # (Auto) 3.6 TH/MM3 Lymphocytes # (Auto) 4.5 TH/MM3 Monocytes # (Auto) 0.5 TH/MM3 Eosinophils # (Auto) 0.1 TH/MM3 Basophils # (Auto) 0.0 TH/MM3 CBC Comment DIFF FINAL Differential Comment Blood Urea Nitrogen 7 MG/DL Creatinine 0.70 MG/DL Random Glucose 123 MG/DL Total Protein 7.7 GM/DL Albumin 4.1 GM/DL Calcium Level 8.9 MG/DL Alkaline Phosphatase 44 U/L Aspartate Amino Transf (AST/SGOT) 25 U/L Alanine Aminotransferase (ALT/SGPT) 33 U/L Total Bilirubin 0.5 MG/DL Sodium Level 130 MEQ/L Potassium Level 3.8 MEQ/L Chloride Level 94 MEQ/L Carbon Dioxide Level 26.1 MEQ/L Anion Gap 10 MEQ/L Estimat Glomerular Filtration Rate 92 ML/MIN Phenytoin (Dilantin) Level 27.2 MCG/ML [facility] Medical Decision Making Medical Screen Exam Complete: Yes Emergency Medical Condition: Yes Interpretation(s) LABS: CBC is unremarkable CMP is unremarkable, sodium little low at 130. Dilantin 27.2, little bit elevated. Differential Diagnosis Migraine, electrolyte abnormality, adverse drug effect, seizure, CVA, myasthenia , other Narrative Course Medical decision making 42-year-old presents with dizziness and facial tingling. She has had pretty abnormal electrolytes in the past associate with HCTZ and Trileptal use. She looks generally well. No focal findings on neuro exam. Will check labs, medication levels, reassess. Diagnosis Primary Impression: Dilantin toxicity Patient Instructions: General Instructions Additional Instructions: Follow-up with your doctor in 2 days for repeat evaluation. Hold Dilantin until you see your physician. Return to the emergency department for any new or worsening symptoms. Med/Other Pt SpecificInfo: Existing Med Changed Disposition: 01 DISCHARGE HOME Condition: Stable [place] MD July 08, 2017 09:45
[2017-07-08 09:57] LABS: ALT (GPT) 33 U/L (10-53)
[2017-07-08 09:59] LABS: ALKALINE PHOSPHATASE 44 U/L (45-117); TOTAL BILIRUBIN ADULT 0.5 MG/DL (0.2-1.0); TOTAL PROTEIN 7.7 GM/DL (6.4-8.2)
[2017-07-08 10:02] LABS: ALBUMIN 4.1 GM/DL (3.4-5.0); AST (GOT) 25 U/L (15-37); BICARBONATE 26.1 MEQ/L (21.0-32.0); BLOOD UREA NITROGEN 7 MG/DL (7-18); CALCIUM 8.9 MG/DL (8.5-10.1); CHLORIDE 94 MEQ/L (98-107); GLOMERULAR FILTRATION RATE 92 ML/MIN (>89); GLUCOSE,RANDOM 123 MG/DL (74-106); SODIUM (NA) 130 MEQ/L (136-145)
== END 2017-07-08 11:19 | disposition home or self-care (01) ==
LOC: NEPE 08:29
DX: R42 Dizziness and giddiness (principal); T42.0X5A Adverse effect of hydantoin derivatives, initial encounter; E03.9 Hypothyroidism, unspecified; E11.9 Type 2 diabetes mellitus without complications; I10 Essential (primary) hypertension; Z79.84 Long term (current) use of oral hypoglycemic drugs
CPT/HCPCS: 80053; 80183; 80185; 84703; 85025; 96361; 96374; 99284; J2405; J7030